=== PATIENT | female | born 1970 | race African-American/Black ===

== ENCOUNTER 2019-02-23 10:33 | Emergency (ER) | payer MEDICAID ==
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
[2019-02-23] MEDS ORDERED: Sodium Chloride 0.9% 1,000 ML IV ONE (11:21)
== END 2019-02-23 11:44 | disposition home or self-care (01) ==
LOC: JD.ED 10:33
DX: F10.20 Alcohol dependence, uncomplicated (principal); F41.9 Anxiety disorder, unspecified; F32.9 Major depressive disorder, single episode, unspecified; F17.210 Nicotine dependence, cigarettes, uncomplicated; Z88.1 Allergy status to other antibiotic agents
CPT/HCPCS: 99284

== ENCOUNTER 2022-01-02 17:23 | Inpatient (IN) | payer MEDICAID ==
[2022-01-02] MEDS ORDERED: Sodium Chloride 0.9% 10 ML Syringe FLUSH PRN (19:28)
[2022-01-02] MEDS ORDERED: Lidocaine 2% Jelly 10 ML Urojet MUCMEM ONE (19:31)
[2022-01-02] MEDS ORDERED: Sodium Chloride 0.9% 10 ML Syringe FLUSH ONE (19:34)
[2022-01-02] MEDS ORDERED: Iopamidol 612 MG/ML 100 ML Bottle IVPUSH ONE (19:34)
[2022-01-02] MEDS ORDERED: Furosemide 40 MG/4 ML VIAL IVPUSH ONE (19:43)
[2022-01-02] MEDS ORDERED: Sodium Chloride 0.9% 100 ML IV SCH (19:45)
[2022-01-02] MEDS ORDERED: Potassium Chloride 20 MEQ Tab.ER PO ONE (20:46)
[2022-01-02] MEDS ORDERED: Ondansetron 4 MG/2 ML SDV IVPUSH ONE (21:49)
[2022-01-02] MEDS ORDERED: HYDROmorphone 0.5 MG/0.5 ML Syringe IVPUSH ONE (21:49)
[2022-01-02] MEDS ORDERED: Metoclopramide 10 MG/2 ML SDV IVPUSH PRN (23:58)
[2022-01-03] MEDS: HYDROmorphone 0.5 MG/0.5 ML Syringe IVPUSH PRN ×2 (03:19→23:53)
[2022-01-03] MEDS ORDERED: Ondansetron 4 MG/2 ML SDV IVPUSH PRN (06:00)
[2022-01-03] MEDS ORDERED: Magnesium Hydroxide 400 MG/5 ML Susp 30 ML Cup PO ONE ×2 (06:43→09:00)
[2022-01-03] MEDS ORDERED: Furosemide 40 MG/4 ML VIAL IVPUSH SCH (09:00)
[2022-01-03] MEDS ORDERED: Acetaminophen 325 MG Tab PO PRN (09:15)
[2022-01-03] MEDS ORDERED: Enoxaparin 30 MG/0.3 ML Syringe SUBCUT SCH (11:00)
[2022-01-03] MEDS ORDERED: Nicotine 14 MG/24 Hr Patch TRDERM ONE (11:15)
[2022-01-03] MEDS: Furosemide 20 MG/2 ML VIAL IVPUSH SCH (17:26)
[2022-01-03] MEDS ORDERED: Furosemide 20 MG/2 ML VIAL IVPUSH SCH (21:00)
[2022-01-03] MEDS ORDERED: Simethicone Drops 40 MG/0.6 ML 30 ML Bottle PO ONE (21:34)
[2022-01-03] MEDS ORDERED: Simethicone 80 MG Tab.Chew PO ONE (21:36)
[2022-01-04] MEDS: Furosemide 20 MG/2 ML VIAL IVPUSH SCH ×2 (06:15→14:51)
[2022-01-04] MEDS ORDERED: Bisacodyl 10 MG Supp RECTAL ONE (08:00)
[2022-01-04] MEDS: Enoxaparin 40 MG/0.4 ML Syringe SUBCUT SCH (09:01)
[2022-01-04] MEDS ORDERED: Furosemide 20 MG/2 ML VIAL IVPUSH ONE (09:45)
[2022-01-04] MEDS ORDERED: Magnesium Sulfate/Water 2 GM in Premix Bag 1 BAG IV ONE (11:00)
[2022-01-05] MEDS: Furosemide 20 MG/2 ML VIAL IVPUSH SCH ×2 (06:51→13:45)
[2022-01-05] MEDS ORDERED: Bisacodyl 10 MG Supp RECTAL ONE (08:00)
[2022-01-05] MEDS: Enoxaparin 40 MG/0.4 ML Syringe SUBCUT SCH ×3 (09:05→16:12)
[2022-01-05] MEDS: Metoprolol Succinate 25 MG Tab.ER PO SCH (09:06)
[2022-01-05] MEDS: Lisinopril 5 MG Tab PO SCH (09:06)
[2022-01-05] MEDS: Topiramate 25 MG Tab PO SCH ×3 (13:46→19:22)
[2022-01-05] MEDS ORDERED: Lisinopril 5 MG Tab PO ONE (15:30)
[2022-01-05] MEDS ORDERED: Metoprolol Succinate 25 MG Tab.ER PO ONE (15:30)
[2022-01-05] MEDS: fluvoxaMINE 50 MG Tab PO SCH (19:21)
[2022-01-05] MEDS: Haloperidol 5 MG Tab PO SCH (19:23)
[2022-01-05] MEDS: HYDROmorphone 0.5 MG/0.5 ML Syringe IVPUSH PRN (23:55)
[2022-01-06] MEDS: fluvoxaMINE 50 MG Tab PO SCH ×3 (01:04→20:52)
[2022-01-06] MEDS: Haloperidol 5 MG Tab PO SCH ×3 (01:05→20:52)
[2022-01-06] MEDS: Topiramate 25 MG Tab PO SCH ×5 (01:05→23:08)
[2022-01-06] MEDS: Furosemide 20 MG/2 ML VIAL IVPUSH SCH ×2 (06:41→14:28)
[2022-01-06] MEDS: Metoprolol Succinate 25 MG Tab.ER PO SCH (11:06)
[2022-01-06] MEDS: Lisinopril 5 MG Tab PO SCH (11:06)
[2022-01-06] MEDS: Enoxaparin 40 MG/0.4 ML Syringe SUBCUT SCH (14:29)
[2022-01-07] MEDS: Furosemide 20 MG/2 ML VIAL IVPUSH SCH (05:09)
[2022-01-07] MEDS: Topiramate 25 MG Tab PO SCH (08:37)
[2022-01-07] MEDS: Lisinopril 5 MG Tab PO SCH (08:38)
[2022-01-07] MEDS: Metoprolol Succinate 25 MG Tab.ER PO SCH (08:39)
== END 2022-01-07 13:06 | disposition home or self-care (01) | DRG 293 ==
LOC: JD.ED 17:23 → SUPCPDRO 17:23 → JD.MS 21:41
PROVIDERS: ADMIT Internal Medicine; ATTEND Internal Medicine
PROC: 30233N1 Transfusion of Nonautologous Red Blood Cells into Peripheral Vein, Percutaneous Approach (ICD-10-PCS; principal; 2022-01-02)
DX: I50.23 Acute on chronic systolic (congestive) heart failure (principal); F10.20 Alcohol dependence, uncomplicated; R33.9 Retention of urine, unspecified; D50.8 Other iron deficiency anemias; I34.0 Nonrheumatic mitral (valve) insufficiency; F42.9 Obsessive-compulsive disorder, unspecified; F21 Schizotypal disorder; F25.1 Schizoaffective disorder, depressive type; F32.A Depression, unspecified; F17.200 Nicotine dependence, unspecified, uncomplicated; H54.7 Unspecified visual loss; J45.909 Unspecified asthma, uncomplicated; F41.9 Anxiety disorder, unspecified; Z88.0 Allergy status to penicillin
CPT/HCPCS: 36415; 71045; 71045-26; 74019; 74019-26; 74177; 74177-26; 80053; 81001; 82977; 83690; 83735; 83880; 85025; 86140; 93005; 93010; 93306; 94667; 94760; 94761; 96374; 96375; 99222; 99233; 99239; 99285; 99285-25; A9270-GY; J1170; J1650; J1940; J2405; J3475; J3490; Q9967

== ENCOUNTER 2022-02-20 17:01 | Emergency (ER) | payer MEDICAID ==
[2022-02-20] MEDS ORDERED: Furosemide 40 MG Tab PO ONE (18:51)
== END 2022-02-20 19:54 | disposition home or self-care (01) ==
LOC: JD.ED 17:01
DX: I50.9 Heart failure, unspecified (principal); Z88.0 Allergy status to penicillin; Z79.899 Other long term (current) drug therapy; Z72.0 Tobacco use
CPT/HCPCS: 36415; 71045; 80053; 81001; 83735; 83880; 84484; 85025; 86140; 87086; 93005; 99285; A9270; 93010; 99284

== ENCOUNTER 2022-04-23 19:50 | Emergency (ER) | payer MEDICAID ==
[2022-04-23] MEDS ORDERED: Amiodarone In Dextrose,Iso-Osm 0 ML IV ONE (19:56)
[2022-04-23] MEDS ORDERED: Propofol 200 MG/20 ML SDV IVPUSH ONE (20:03)
[2022-04-23] MEDS ORDERED: Rocuronium 50 MG/5 ML Vial IVPUSH ONE (20:03)
[2022-04-23] MEDS: propofoL 100 ML IV SCH (20:10)
[2022-04-23] MEDS: Sodium Chloride 0.9% 1,000 ML ONE (20:10)
[2022-04-23] MEDS: propofoL 100 ML ONE (20:10)
[2022-04-23] MEDS ORDERED: Sodium Chloride 0.9% 1,000 ML IV ONE (20:15)
[2022-04-23] MEDS ORDERED: Norepinephrine 4 MG/4 ML SDV ONE (20:22)
[2022-04-23] MEDS ORDERED: Sodium Chloride 0.9% 250 ML ONE (20:23)
[2022-04-23] MEDS ORDERED: Norepinephrine 4 MG in Dextrose 5% in Water 246 ML IV SCH ×4 (20:28→21:00)
[2022-04-23 20:44] LABS: ESTIMATED GFR 77 mL/min (>60)
[2022-04-23] MEDS ORDERED: Iopamidol 755 Mg/ML 100 ML Bottle IVPUSH ONE (20:49)
[2022-04-23] MEDS ORDERED: Sodium Chloride 0.9% 100 ML IV SCH (21:00)
[2022-04-23] MEDS ORDERED: Piperacillin/Tazobactam 4.5 GM in Sodium Chloride 0.9% 100 ML IV ONE (21:27)
[2022-04-24] MEDS: propofoL 100 ML ONE (00:27)
[2022-04-24] MEDS ORDERED: Lanolin/Mineral Oil/Petrolatum Ophth Oint 3.5 GM Tube ONE (00:43)
[2022-04-24] MEDS: propofoL 100 ML IV SCH (01:20)
[2022-04-24] MEDS ORDERED: Lanolin/Mineral Oil/Petrolatum Ophth Oint 3.5 GM Tube EYEBOTH PRN (01:20)
[2022-04-24] MEDS: Sodium Chloride 0.9% 1,000 ML ONE (02:54)
== END 2022-04-24 01:30 ==
LOC: JD.ED 19:50
DX: I46.9 Cardiac arrest, cause unspecified (principal); I50.89 Other heart failure; E87.2 Acidosis; R77.8 Other specified abnormalities of plasma proteins; Z88.0 Allergy status to penicillin; Z79.899 Other long term (current) drug therapy; Z20.822 Contact with and (suspected) exposure to COVID-19
CPT/HCPCS: 31500; 36415; 36600; 51702; 71045; 71275; 80053; 80306; 80307; 81001; 82803; 83605; 83735; 83880; 84484; 85007; 85027; 85379; 85610; 85730; 86140; 87040; 87635; 93005; 96365; 96366; 96368; 99285; A9270; J0282; J2543; J2704; J7030; J7060; Q9967; 93010; U0002

== ENCOUNTER 2022-04-28 20:02 | Emergency (ER) | payer MEDICAID | END 2022-04-28 23:41 | disposition home or self-care (01) | LOC: JD.ED 20:02 | DX: S22.49XA Multiple fractures of ribs, unspecified side, initial encounter for closed fracture (principal); S27.329A Contusion of lung, unspecified, initial encounter; R09.02 Hypoxemia; I50.40 Unspecified combined systolic (congestive) and diastolic (congestive) heart failure; F17.210 Nicotine dependence, cigarettes, uncomplicated; Z28.310 Unvaccinated for COVID-19; Z79.899 Other long term (current) drug therapy; Z86.16 Personal history of COVID-19 | CPT/HCPCS: 31500; 36680; 92950; 99284; 99284-25 ==

== ENCOUNTER 2022-05-01 12:26 | Emergency (ER) | payer MEDICAID | END 2022-05-01 15:58 | disposition home or self-care (01) | LOC: JD.ED 12:26 | DX: L03.116 Cellulitis of left lower limb (principal); I50.40 Unspecified combined systolic (congestive) and diastolic (congestive) heart failure; Z86.16 Personal history of COVID-19 | CPT/HCPCS: 36415; 80053; 83880; 84484; 85025; 93005; 99283 ==

== ENCOUNTER 2023-06-11 17:53 | Emergency (ER) | payer MEDICAID ==
[2023-06-11] MEDS ORDERED: Sodium Chloride 0.9% 10 ML Syringe FLUSH PRN (18:41)
[2023-06-11] MEDS ORDERED: Sodium Chloride 0.9% 1,000 ML IV SCH (18:45)
[2023-06-11 19:59] LABS: BASOPHILS ABSOLUTE AUTO 0.02 K/mm3 (0.01-0.08); BASOPHILS PERCENT AUTO 0.2 % (0.1-1.2); EOSINOPHILS PERCENT AUTO 0 (0.7-5.8); IMMATURE GRAN ABSOLUTE AUTO 0.02 K/mm3 (0.00-0.10); IMMATURE GRAN PERCENT AUTO 0.2 % (<=1.0); LYMPHOCYTES PERCENT AUTO 4.8 % (19.3-51.7); MEAN PLATELET VOLUME 10.2 fl (9.4-12.3); MONOCYTES ABSOLUTE AUTO 1.12 K/mm3 (0.24-0.36); MONOCYTES PERCENT AUTO 10.6 % (4.7-12.5); NEUTROPHILS ABSOLUTE AUTO 8.86 K/mm3 (1.56-6.13); NEUTROPHILS PERCENT AUTO 84.2 % (34.0-71.1); PLATELET COUNT,PLT 200 K/mm3 (182-369); WHITE BLOOD CELL COUNT,WBC 10.52 K/mm3 (3.98-10.04)
[2023-06-11 20:26] LABS: HEMATOCRIT 37.8 % (34.1-44.9); HEMOGLOBIN 13.2 gm/dl (11.2-15.7); MEAN CORPUSCULAR HEMOGLOBIN 34.9 pg (25.6-32.2); MEAN CORPUSCULAR HGB CONC 34.9 g/dl (32.2-35.5)
[2023-06-11 20:28] LABS: A/G RATIO 1.1 (1-2); ALANINE AMINOTRANSFERASE,ALT 85 U/L (14-59); ALBUMIN 3.9 g/dl (3.4-5.0); ALKALINE PHOSPHATASE 157 U/L (46-116); ANION GAP 16.2 (5-15); ASPARTATE AMNIOTRANSFERASE,AST 125 U/L (15-37); BILIRUBIN TOTAL 1.4 mg/dL (0.2-1.0); BLOOD UREA NITROGEN,BUN 5 mg/dL (7-18); BUN/CREATININE RATIO 8.3 (14-18); CALCIUM 9.9 mg/dL (8.5-10.1); CARBON DIOXIDE,CO2 24 mEq/L (21-32); CHLORIDE,CL 100 mEq/L (98-107); CREATININE 0.6 mg/dL (0.55-1.02); ESTIMATED GFR 107 mL/min (>60); GLUCOSE RANDOM 118 mg/dL (70-99); MAGNESIUM 1.3 mg/dL (1.8-2.4); POTASSIUM,K 3.2 mEq/L (3.5-5.1); PROTEIN TOTAL,TP 7.6 g/dl (6.4-8.2); RED BLOOD CELL COUNT 3.78 M/mm3 (3.98-5.22); SODIUM,NA 137 mEq/L (136-145); TSH 0.774 uIU/mL (0.358-3.74)
[2023-06-11 20:33] LABS: APPEARANCE,URINE CLEAR (Clear); BILIRUBIN,URINE NEGATIVE (Negative); COLOR,URINE YELLOW (Yellow); GLUCOSE,URINE NEGATIVE (Negative); KETONES,URINE 2+ (Negative); LEUKOCYTE ESTERASE,URINE NEGATIVE (Negative); NITRITE,URINE NEGATIVE (Negative); OCCULT BLOOD,URINE NEGATIVE (Negative); PROTEIN,URINE 2+ (Negative)
[2023-06-11 20:34] LABS: TROPONIN I HIGH SENSITIVITY 292 pg/mL (<=51)
[2023-06-11 20:40] LABS: RBC,URINE 0-5 /hpf (0-5); WBC,URINE 0-5 /hpf (0-5)
[2023-06-11 20:41] LABS: BACTERIA,URINE FEW /hpf (FEW); HYALINE CASTS,URINE 0-5 /lpf (0-5); MUCUS,URINE MODERATE /hpf (FEW)
[2023-06-11 20:43] LABS: BARBITURATE SCREEN,URINE NEGATIVE (CUTOFF=200); BENZODIAZEPINES SCREEN,URINE NEGATIVE (CUTOFF=150); BUPRENORPHINE SCREEN,URINE NEGATIVE (CUTOFF=10); METHADONE SCREEN, URINE NEGATIVE (CUTOFF=200); METHAMPHETAMINES SCREEN, URINE NEGATIVE (CUTOFF=500); OXYCODONE SCREEN,URINE NEGATIVE (CUT0FF=100); PROPOXYPHENE SCREEN,URINE NEGATIVE (CUTOFF=300); THC SCREEN,URINE 20 NG/ML NEGATIVE (CUTOFF=50)
[2023-06-11 20:46] LABS: AMPHETAMINES SCREEN, URINE NEGATIVE (CUTOFF=500)
[2023-06-11] MEDS ORDERED: Potassium Chloride 20 MEQ Tab.ER PO ONE (20:47)
== END 2023-06-11 20:58 | disposition left against medical advice (07) ==
LOC: JD.ED 17:53
DX: R07.89 Other chest pain (principal)
CPT/HCPCS: 36415; 71045; 80053; 80306; 80307; 81001; 83735; 84443; 84484; 85025; 93005; 96360; 99285; J3490; J7030; 93010; 99283

== ENCOUNTER 2023-06-11 21:47 | Emergency (ER) | payer MEDICAID ==
[2023-06-11 22:27] LABS: BASOPHILS ABSOLUTE AUTO 0.01 K/mm3 (0.01-0.08); BASOPHILS PERCENT AUTO 0.1 % (0.1-1.2); EOSINOPHILS PERCENT AUTO 0 (0.7-5.8); IMMATURE GRAN ABSOLUTE AUTO 0.03 K/mm3 (0.00-0.10); IMMATURE GRAN PERCENT AUTO 0.3 % (<=1.0); LYMPHOCYTES ABSOLUTE AUTO 0.46 K/mm3 (1.18-3.74); LYMPHOCYTES PERCENT AUTO 4.8 % (19.3-51.7); MEAN PLATELET VOLUME 9.8 fl (9.4-12.3); MONOCYTES PERCENT AUTO 9.4 % (4.7-12.5); NEUTROPHILS ABSOLUTE AUTO 8.16 K/mm3 (1.56-6.13); NEUTROPHILS PERCENT AUTO 85.4 % (34.0-71.1); PLATELET COUNT,PLT 179 K/mm3 (182-369); WHITE BLOOD CELL COUNT,WBC 9.56 K/mm3 (3.98-10.04)
[2023-06-11 22:47] LABS: HEMATOCRIT 36.6 % (34.1-44.9); HEMOGLOBIN 12.6 gm/dl (11.2-15.7)
[2023-06-11 22:48] LABS: MEAN CORPUSCULAR HEMOGLOBIN 34.4 pg (25.6-32.2); MEAN CORPUSCULAR HGB CONC 34.4 g/dl (32.2-35.5)
[2023-06-11 22:49] LABS: RED BLOOD CELL COUNT 3.66 M/mm3 (3.98-5.22)
[2023-06-11 23:36] LABS: ALBUMIN 3.6 g/dl (3.4-5.0); ANION GAP 15.1 (5-15); BILIRUBIN TOTAL 1.4 mg/dL (0.2-1.0); BUN/CREATININE RATIO 7.1 (14-18); CALCIUM 9.4 mg/dL (8.5-10.1); CREATININE 0.7 mg/dL (0.55-1.02); EST CRCL DRUG DOSING (CG) 99.74 mL/min; POTASSIUM,K 3.1 mEq/L (3.5-5.1); PROTEIN TOTAL,TP 7.2 g/dl (6.4-8.2)
[2023-06-11] MEDS ORDERED: Aspirin 325 MG Tab.EC PO ONE (23:42)
[2023-06-11] MEDS ORDERED: Potassium Chloride 20 MEQ Tab.ER PO ONE (23:44)
[2023-06-12] MEDS ORDERED: Heparin Sodium 5,000 Units/ML Vial IVPUSH ONE ×2 (00:17→00:30)
[2023-06-12] MEDS ORDERED: Heparin Sodium/D5W 25,000 UNITS/500 ML BAG IV SCH (00:30)
== END 2023-06-12 02:22 ==
LOC: JD.ED 21:47
DX: I21.4 Non-ST elevation (NSTEMI) myocardial infarction (principal); Z86.16 Personal history of COVID-19; I50.9 Heart failure, unspecified; Z79.899 Other long term (current) drug therapy
CPT/HCPCS: 36415; 80053; 84484; 85025; 93005; 96365; 96366; 99285; A9270; J1644; 93010

== ENCOUNTER 2023-08-02 14:24 | Emergency (ER) | payer MEDICAID ==
[2023-08-02] MEDS ORDERED: Sodium Chloride 0.9% 10 ML Syringe FLUSH PRN (15:14)
[2023-08-02] MEDS ORDERED: Ondansetron 4 MG/2 ML SDV IVPUSH ONE (15:14)
[2023-08-02] MEDS ORDERED: Sodium Chloride 0.9% 1,000 ML IV SCH (15:15)
[2023-08-02] MEDS ORDERED: HYDROmorphone 0.5 MG/0.5 ML Syringe IVPUSH ONE (15:17)
[2023-08-02 15:23] LABS: BASOPHILS ABSOLUTE AUTO 0.1 K/mm3 (0.0-0.2); BASOPHILS PERCENT AUTO 0.9 % (0.0-1.0); EOSINOPHILS PERCENT AUTO 0.5 % (0.0-6.0); HEMATOCRIT 39.2 % (37.0-47.0); HEMOGLOBIN 14.9 gm/dl (12.0-16.0); IMMATURE GRAN ABSOLUTE AUTO 0.05 K/mm3 (0.00-0.05); IMMATURE GRAN PERCENT AUTO 0.9 % (0.0-0.4); LYMPHOCYTES ABSOLUTE AUTO 0.6 K/mm3 (1.0-4.8); LYMPHOCYTES PERCENT AUTO 10.7 % (24.0-44.0); MEAN CORPUSCULAR HEMOGLOBIN 35.2 pg (28.0-32.0); MEAN CORPUSCULAR VOLUME 92.7 fl (83.0-99.0); MEAN PLATELET VOLUME 10.5 fl (9.4-12.3); MONOCYTES ABSOLUTE AUTO 0.5 K/mm3 (0.0-0.8); NEUTROPHILS ABSOLUTE AUTO 4.5 K/mm3 (1.8-7.7); PLATELET COUNT,PLT 189 K/mm3 (150-400); RED BLOOD CELL COUNT 4.23 M/mm3 (4.10-5.30); WHITE BLOOD CELL COUNT,WBC 5.77 K/mm3 (3.9-11.3)
[2023-08-02] MEDS ORDERED: Sodium Chloride 0.9% 10 ML Syringe FLUSH ONE (15:33)
[2023-08-02] MEDS ORDERED: Iopamidol 612 MG/ML 100 ML Bottle IVPUSH ONE (15:33)
[2023-08-02 15:35] LABS: A/G RATIO 1.1 (1-2); ALANINE AMINOTRANSFERASE,ALT 59 U/L (14-59); ALBUMIN 4.1 g/dl (3.4-5.0); ALKALINE PHOSPHATASE 166 U/L (46-116); ANION GAP 17.4 (5-15); ASPARTATE AMNIOTRANSFERASE,AST 174 U/L (15-37); BILIRUBIN TOTAL 2.2 mg/dL (0.2-1.0); BLOOD UREA NITROGEN,BUN 7 mg/dL (7-18); BUN/CREATININE RATIO 7.8 (14-18); C-REACTIVE PROTEIN <0.2 mg/dL (<1.0); CALCIUM 9.6 mg/dL (8.5-10.1); CARBON DIOXIDE,CO2 25 mEq/L (21-32); CHLORIDE,CL 101 mEq/L (98-107); CREATININE 0.9 mg/dL (0.55-1.02); EST CRCL DRUG DOSING (CG) 74.68 mL/min; ESTIMATED GFR 76 mL/min (>60); GLUCOSE RANDOM 128 mg/dL (70-99); MAGNESIUM 1.3 mg/dL (1.8-2.4); POTASSIUM,K 3.4 mEq/L (3.5-5.1); PROTEIN TOTAL,TP 7.9 g/dl (6.4-8.2); SODIUM,NA 140 mEq/L (136-145); TROPONIN I HIGH SENSITIVITY 32 pg/mL (<=51)
[2023-08-02 15:53] LABS: LIPASE 303 U/L (16-77)
[2023-08-02] MEDS ORDERED: Magnesium Sulfate/Water 2 GM in Premix Bag 1 BAG IV ONE (16:21)
[2023-08-02 17:15] LABS: BARBITURATE SCREEN,URINE NEGATIVE (CUTOFF=200); BENZODIAZEPINES SCREEN,URINE NEGATIVE (CUTOFF=150); BUPRENORPHINE SCREEN,URINE NEGATIVE (CUTOFF=10); METHADONE SCREEN, URINE NEGATIVE (CUTOFF=200); METHAMPHETAMINES SCREEN, URINE NEGATIVE (CUTOFF=500); OXYCODONE SCREEN,URINE NEGATIVE (CUT0FF=100); PROPOXYPHENE SCREEN,URINE NEGATIVE (CUTOFF=300); THC SCREEN,URINE 20 NG/ML NEGATIVE (CUTOFF=50)
[2023-08-02 17:18] LABS: AMPHETAMINES SCREEN, URINE NEGATIVE (CUTOFF=500)
[2023-08-02 17:20] LABS: APPEARANCE,URINE CLEAR (Clear); BILIRUBIN,URINE NEGATIVE (Negative); COLOR,URINE YELLOW (Yellow); GLUCOSE,URINE NEGATIVE (Negative); KETONES,URINE NEGATIVE (Negative); LEUKOCYTE ESTERASE,URINE NEGATIVE (Negative); NITRITE,URINE NEGATIVE (Negative); OCCULT BLOOD,URINE TRACE-INTACT (Negative); PROTEIN,URINE TRACE (Negative)
[2023-08-02 17:29] LABS: BACTERIA,URINE MODERATE /hpf (FEW); MUCUS,URINE FEW /hpf (FEW); TRICHOMONAS,URINE FEW (NOT SEEN)
== END 2023-08-02 17:30 | disposition home or self-care (01) ==
LOC: JD.ED 14:24
DX: K85.20 Alcohol induced acute pancreatitis without necrosis or infection (principal); F10.930 Alcohol use, unspecified with withdrawal, uncomplicated; E83.42 Hypomagnesemia; I50.9 Heart failure, unspecified; Z86.16 Personal history of COVID-19; Z79.899 Other long term (current) drug therapy
CPT/HCPCS: 36415; 71045; 74177; 80053; 80306; 80307; 81001; 83690; 83735; 84484; 85025; 86140; 93005; 96361; 96365; 96375; 99284; J1170; J2405; J3475; J3490; J7030; Q9967; 93010

== ENCOUNTER 2023-08-03 22:16 | Emergency (ER) | payer MEDICAID | END 2023-08-04 02:11 | disposition home or self-care (01) | LOC: JD.ED 22:16 | DX: F10.930 Alcohol use, unspecified with withdrawal, uncomplicated (principal); F17.210 Nicotine dependence, cigarettes, uncomplicated; Z86.16 Personal history of COVID-19 | CPT/HCPCS: 99283; 99284 ==

== ENCOUNTER 2023-08-25 07:17 | Emergency (ER) | payer MEDICAID ==
[2023-08-25] MEDS ORDERED: Sodium Chloride 0.9% 10 ML Syringe FLUSH PRN (07:51)
[2023-08-25 08:42] LABS: MEAN CORPUSCULAR HGB CONC 37.7 g/dl (32.0-36.0); MEAN PLATELET VOLUME 10.5 fl (9.4-12.3); PLATELET COUNT,PLT 189 K/mm3 (150-400); WHITE BLOOD CELL COUNT,WBC 5.52 K/mm3 (3.9-11.3)
[2023-08-25 08:55] LABS: HEMOGLOBIN 14.7 gm/dl (12.0-16.0); RED BLOOD CELL COUNT 4.23 M/mm3 (4.10-5.30)
[2023-08-25 08:57] LABS: MEAN CORPUSCULAR HEMOGLOBIN 34.8 pg (28.0-32.0); MEAN CORPUSCULAR VOLUME 92.2 fl (83.0-99.0)
[2023-08-25 09:06] LABS: ANION GAP 14.6 (5-15); BILIRUBIN TOTAL 0.9 mg/dL (0.2-1.0); BUN/CREATININE RATIO 8.8 (14-18); CREATININE 0.8 mg/dL (0.55-1.02); EST CRCL DRUG DOSING (CG) 86.93 mL/min; POTASSIUM,K 3.6 mEq/L (3.5-5.1); PROTEIN TOTAL,TP 7.9 g/dl (6.4-8.2)
[2023-08-25 09:36] LABS: BARBITURATE SCREEN,URINE NEGATIVE (CUTOFF=200); BENZODIAZEPINES SCREEN,URINE PRESUMPTIVE POSITIVE (CUTOFF=150); BUPRENORPHINE SCREEN,URINE NEGATIVE (CUTOFF=10); METHADONE SCREEN, URINE NEGATIVE (CUTOFF=200); METHAMPHETAMINES SCREEN, URINE NEGATIVE (CUTOFF=500); OXYCODONE SCREEN,URINE NEGATIVE (CUT0FF=100); PROPOXYPHENE SCREEN,URINE NEGATIVE (CUTOFF=300); THC SCREEN,URINE 20 NG/ML NEGATIVE (CUTOFF=50)
[2023-08-25 09:40] LABS: AMPHETAMINES SCREEN, URINE NEGATIVE (CUTOFF=500)
[2023-08-25] MEDS ORDERED: chlordiazePOXIDE 25 MG Cap PO ONE (10:29)
== END 2023-08-25 10:56 | disposition home or self-care (01) ==
LOC: JD.ED 07:17
DX: F10.239 Alcohol dependence with withdrawal, unspecified (principal); R56.9 Unspecified convulsions; Z86.16 Personal history of COVID-19; Z79.899 Other long term (current) drug therapy; Y90.0 Blood alcohol level of less than 20 mg/100 ml
CPT/HCPCS: 36415; 70450; 80053; 80306; 80307; 85027; 99285; A9270; J3490; 99283

== ENCOUNTER 2024-01-21 11:38 | Emergency (ER) | payer MEDICAID ==
[2024-01-21 12:17] LABS: BASOPHILS PERCENT AUTO 0.7 % (0.0-1.0); EOSINOPHILS ABSOLUTE AUTO 0.3 K/mm3 (0.0-0.4); EOSINOPHILS PERCENT AUTO 5.4 % (0.0-6.0); IMMATURE GRAN ABSOLUTE AUTO 0.02 K/mm3 (0.00-0.05); IMMATURE GRAN PERCENT AUTO 0.4 % (0.0-0.4); LYMPHOCYTES ABSOLUTE AUTO 0.9 K/mm3 (1.0-4.8); LYMPHOCYTES PERCENT AUTO 15.8 % (24.0-44.0); MEAN PLATELET VOLUME 9.8 fl (9.4-12.3); MONOCYTES ABSOLUTE AUTO 0.5 K/mm3 (0.0-0.8); MONOCYTES PERCENT AUTO 8.1 % (0.0-8.0); NEUTROPHILS PERCENT AUTO 69.6 % (41.0-71.0); PLATELET COUNT,PLT 186 K/mm3 (150-400); WHITE BLOOD CELL COUNT,WBC 5.69 K/mm3 (3.9-11.3)
[2024-01-21 12:31] LABS: APPEARANCE,URINE CLOUDY (Clear); BILIRUBIN,URINE NEGATIVE (Negative); COLOR,URINE YELLOW (Yellow); GLUCOSE,URINE NEGATIVE (Negative); KETONES,URINE NEGATIVE (Negative); LEUKOCYTE ESTERASE,URINE TRACE (Negative); NITRITE,URINE NEGATIVE (Negative); OCCULT BLOOD,URINE TRACE-INTACT (Negative); PROTEIN,URINE 2+ (Negative); UROBILINOGEN,URINE 0.2 (0.2-1.0)
[2024-01-21 12:33] LABS: INR 1.22; PROTHROMBIN TIME 12.9 SECONDS (9.7-12.0)
[2024-01-21 12:36] LABS: HEMOGLOBIN 13.5 gm/dl (12.0-16.0)
[2024-01-21 12:38] LABS: MEAN CORPUSCULAR HEMOGLOBIN 34.6 pg (28.0-32.0); MEAN CORPUSCULAR HGB CONC 37.5 g/dl (32.0-36.0); MEAN CORPUSCULAR VOLUME 92.3 fl (83.0-99.0)
[2024-01-21 12:38] LABS: BARBITURATE SCREEN,URINE NEGATIVE (CUTOFF=200); BENZODIAZEPINES SCREEN,URINE PRESUMPTIVE POSITIVE (CUTOFF=150); BUPRENORPHINE SCREEN,URINE NEGATIVE (CUTOFF=10); METHADONE SCREEN, URINE NEGATIVE (CUTOFF=200); METHAMPHETAMINES SCREEN, URINE NEGATIVE (CUTOFF=500); OXYCODONE SCREEN,URINE NEGATIVE (CUT0FF=100); THC SCREEN,URINE 20 NG/ML NEGATIVE (CUTOFF=50)
[2024-01-21 12:42] LABS: A/G RATIO 1.1 (1-2); ALBUMIN 4.2 g/dl (3.4-5.0); ANION GAP 16.2 (5-15); BILIRUBIN TOTAL 0.9 mg/dL (0.2-1.0); BUN/CREATININE RATIO 12.2 (14-18); C-REACTIVE PROTEIN 0.23 mg/dL (<0.30); CALCIUM 9.5 mg/dL (8.5-10.1); CREATININE 0.9 mg/dL (0.55-1.02); EST CRCL DRUG DOSING (CG) 72.08 mL/min; MAGNESIUM 1.3 mg/dL (1.8-2.4); POTASSIUM,K 3.2 mEq/L (3.5-5.1)
[2024-01-21 12:43] LABS: AMPHETAMINES SCREEN, URINE NEGATIVE (CUTOFF=500)
[2024-01-21 12:46] LABS: AMORPHOUS SEDIMENT,URINE FEW /hpf (NOT SEEN); BACTERIA,URINE MODERATE /hpf (FEW); MUCUS,URINE FEW /hpf (FEW)
[2024-01-21 12:49] LABS: LACTIC ACID 3.4 mmol/L (0.4-2.0)
[2024-01-21 13:03] LABS: TSH 2.306 uIU/mL (0.358-3.74)
[2024-01-21] MEDS: Sodium Chloride 0.9% 1,000 ML IV SCH ×2 (13:23→14:46)
[2024-01-21] MEDS ORDERED: levETIRAcetam 500 MG in Sodium Chloride 0.9% 100 ML IV ONE (13:39)
[2024-01-21] MEDS: levETIRAcetam 500 MG in Sodium Chloride 0.9% 100 ML IV ONE (14:20)
[2024-01-21] MEDS: Folic Acid 1 MG Tab PO ONE (14:21)
[2024-01-21] MEDS: Potassium Chloride 20 MEQ Tab.ER PO ONE (14:21)
[2024-01-21] MEDS: Thiamine 100 MG Tab PO ONE (14:25)
[2024-01-21] MEDS: Magnesium Sulfate/Water 2 GM in Premix Bag 1 BAG IV ONE (14:44)
== END 2024-01-21 17:20 | disposition home or self-care (01) ==
LOC: JD.ED 11:38
DX: R56.9 Unspecified convulsions (principal); I50.9 Heart failure, unspecified; I25.2 Old myocardial infarction; F17.210 Nicotine dependence, cigarettes, uncomplicated; Z79.899 Other long term (current) drug therapy; Z86.16 Personal history of COVID-19
CPT/HCPCS: 36415; 70450; 70450-26; 71046; 71046-26; 80053; 80306; 80307; 81001; 83605; 83735; 83880; 84443; 84484; 85025; 85610; 86140; 87086; 93005; 93010; 96361; 96365; 96366; 96367; 99283; 99284-25; A9270-GY; J1953; J3475; J3490; J7030

== ENCOUNTER 2024-05-05 11:28 | Emergency (ER) | payer MEDICAID ==
[2024-05-05 12:08] LABS: BASOPHILS ABSOLUTE AUTO 0.1 K/mm3 (0.0-0.2); BASOPHILS PERCENT AUTO 0.4 % (0.0-1.0); EOSINOPHILS ABSOLUTE AUTO 0.1 K/mm3 (0.0-0.4); EOSINOPHILS PERCENT AUTO 0.9 % (0.0-6.0); HEMATOCRIT 30.4 % (37.0-47.0); HEMOGLOBIN 11.6 gm/dl (12.0-16.0); IMMATURE GRAN ABSOLUTE AUTO 0.31 K/mm3 (0.00-0.05); IMMATURE GRAN PERCENT AUTO 2.2 % (0.0-0.4); LYMPHOCYTES ABSOLUTE AUTO 1.1 K/mm3 (1.0-4.8); LYMPHOCYTES PERCENT AUTO 7.5 % (24.0-44.0); MEAN CORPUSCULAR HEMOGLOBIN 33.9 pg (28.0-32.0); MEAN CORPUSCULAR HGB CONC 38.2 g/dl (32.0-36.0); MEAN CORPUSCULAR VOLUME 88.9 fl (83.0-99.0); MEAN PLATELET VOLUME 10.6 fl (9.4-12.3); MONOCYTES ABSOLUTE AUTO 1.8 K/mm3 (0.0-0.8); NEUTROPHILS ABSOLUTE AUTO 10.7 K/mm3 (1.8-7.7); PLATELET COUNT,PLT 332 K/mm3 (150-400); RED BLOOD CELL COUNT 3.42 M/mm3 (4.10-5.30); WHITE BLOOD CELL COUNT,WBC 14.05 K/mm3 (3.9-11.3)
[2024-05-05] MEDS: HYDROmorphone 0.5 MG/0.5 ML Syringe IVPUSH ONE ×2 (12:18→16:29)
[2024-05-05] MEDS: Ondansetron 4 MG/2 ML SDV IVPUSH ONE (12:18)
[2024-05-05] MEDS: Sodium Chloride 0.9% 1,000 ML IV STA (12:19)
[2024-05-05] MEDS: Sodium Chloride 0.9% 10 ML Syringe FLUSH PRN ×2 (12:19→15:16)
[2024-05-05 12:37] LABS: A/G RATIO 0.7 (1-2); ALBUMIN 3.2 g/dl (3.4-5.0); ANION GAP 17.9 (5-15); BILIRUBIN TOTAL 0.7 mg/dL (0.2-1.0); C-REACTIVE PROTEIN 12.3 mg/dL (<0.30); CALCIUM 9.1 mg/dL (8.5-10.1); EST CRCL DRUG DOSING (CG) 64.98 mL/min; POTASSIUM,K 4.9 mEq/L (3.5-5.1); PROTEIN TOTAL,TP 7.8 g/dl (6.4-8.2)
[2024-05-05 12:42] LABS: LACTIC ACID 1.1 mmol/L (0.4-2.0)
[2024-05-05] MEDS: Piperacillin/Tazobactam 4.5 GM in Sodium Chloride 0.9% 100 ML IV ONE (14:05)
[2024-05-05 14:07] LABS: SLIDE REVIEW ABNORMAL SMEAR
[2024-05-05] MEDS: Iopamidol 612 MG/ML 100 ML Bottle IVPUSH ONE (15:16)
[2024-05-05 16:39] LABS: APPEARANCE,URINE CLEAR (Clear); BILIRUBIN,URINE NEGATIVE (Negative); COLOR,URINE YELLOW (Yellow); GLUCOSE,URINE NEGATIVE (Negative); KETONES,URINE NEGATIVE (Negative); LEUKOCYTE ESTERASE,URINE NEGATIVE (Negative); NITRITE,URINE NEGATIVE (Negative); OCCULT BLOOD,URINE NEGATIVE (Negative); PROTEIN,URINE NEGATIVE (Negative); UROBILINOGEN,URINE 0.2 (0.2-1.0)
== END 2024-05-05 16:44 ==
LOC: JD.ED 11:28
DX: K85.20 Alcohol induced acute pancreatitis without necrosis or infection (principal); K86.3 Pseudocyst of pancreas; K86.89 Other specified diseases of pancreas; I50.9 Heart failure, unspecified; Z86.16 Personal history of COVID-19
CPT/HCPCS: 36415; 71260; 71260-26; 74177; 74177-26; 80053; 80307; 81003; 83605; 83690; 83880; 84484; 85025; 86140; 86850; 86900; 86901; 87040; 93005; 93010; 96361; 96365; 96375; 96376; 99285; 99285-25; J1170; J2405; J2543; J3490; J7030; Q9967

== ENCOUNTER 2024-05-18 03:01 | Emergency (ER) | payer MEDICAID ==
[2024-05-18 04:16] LABS: BASOPHILS ABSOLUTE AUTO 0.1 K/mm3 (0.0-0.2); BASOPHILS PERCENT AUTO 0.6 % (0.0-1.0); EOSINOPHILS ABSOLUTE AUTO 0.3 K/mm3 (0.0-0.4); EOSINOPHILS PERCENT AUTO 3.1 % (0.0-6.0); HEMATOCRIT 30.6 % (37.0-47.0); HEMOGLOBIN 10.7 gm/dl (12.0-16.0); IMMATURE GRAN ABSOLUTE AUTO 0.36 K/mm3 (0.00-0.05); IMMATURE GRAN PERCENT AUTO 3.4 % (0.0-0.4); LYMPHOCYTES ABSOLUTE AUTO 1.1 K/mm3 (1.0-4.8); LYMPHOCYTES PERCENT AUTO 10.2 % (24.0-44.0); MEAN CORPUSCULAR HEMOGLOBIN 32.7 pg (28.0-32.0); MEAN CORPUSCULAR VOLUME 93.6 fl (83.0-99.0); MEAN PLATELET VOLUME 9.9 fl (9.4-12.3); MONOCYTES ABSOLUTE AUTO 1.2 K/mm3 (0.0-0.8); MONOCYTES PERCENT AUTO 11.3 % (0.0-8.0); NEUTROPHILS ABSOLUTE AUTO 7.6 K/mm3 (1.8-7.7); NEUTROPHILS PERCENT AUTO 71.4 % (41.0-71.0); PLATELET COUNT,PLT 275 K/mm3 (150-400); RED BLOOD CELL COUNT 3.27 M/mm3 (4.10-5.30); WHITE BLOOD CELL COUNT,WBC 10.67 K/mm3 (3.9-11.3)
[2024-05-18 04:18] LABS: APPEARANCE,URINE CLEAR (Clear); BILIRUBIN,URINE NEGATIVE (Negative); COLOR,URINE DARK YELLOW (Yellow); GLUCOSE,URINE NEGATIVE (Negative); KETONES,URINE NEGATIVE (Negative); LEUKOCYTE ESTERASE,URINE NEGATIVE (Negative); NITRITE,URINE NEGATIVE (Negative); OCCULT BLOOD,URINE NEGATIVE (Negative); PROTEIN,URINE 1+ (Negative); UROBILINOGEN,URINE 0.2 (0.2-1.0)
[2024-05-18] MEDS: Dextrose 5%-Lactated Ringers 1,000 ML IV SCH (04:18)
[2024-05-18] MEDS: HYDROmorphone 0.5 MG/0.5 ML Syringe IVPUSH ONE (04:18)
[2024-05-18] MEDS: Metoclopramide 10 MG/2 ML SDV IVPUSH ONE (04:18)
[2024-05-18 04:23] LABS: INR 1.22; PROTHROMBIN TIME 12.8 SECONDS (9.7-12.0)
[2024-05-18 04:24] LABS: PTT,PARTIAL THROMBOPLSTIN TIME 29.4 SECONDS (21.7-31.4)
[2024-05-18 04:25] LABS: BACTERIA,URINE FEW /hpf (FEW); HYALINE CASTS,URINE 0-5 /lpf (0-5); MUCUS,URINE RARE /hpf (FEW); RBC,URINE 0-5 /hpf (0-5); SQUAMOUS EPITHELIAL CELLS,UR 0-5 /hpf (0-5); WBC,URINE 0-5 /hpf (0-5)
[2024-05-18 04:26] LABS: A/G RATIO 0.8 (1-2); ALBUMIN 3.2 g/dl (3.4-5.0); ANION GAP 12.8 (5-15); BILIRUBIN TOTAL 0.4 mg/dL (0.2-1.0); C-REACTIVE PROTEIN 0.94 mg/dL (<0.30); CALCIUM 9.2 mg/dL (8.5-10.1); CREATININE 0.8 mg/dL (0.55-1.02); EST CRCL DRUG DOSING (CG) 69.42 mL/min; POTASSIUM,K 4.8 mEq/L (3.5-5.1); PROTEIN TOTAL,TP 7.4 g/dl (6.4-8.2)
[2024-05-18] MEDS: Iopamidol 612 MG/ML 100 ML Bottle IVPUSH ONE (06:05)
[2024-05-18] MEDS: Sodium Chloride 0.9% 10 ML Syringe FLUSH ONE (06:05)
[2024-05-18] MEDS: oxyCODONE 5 MG Tab PO ONE (10:33)
== END 2024-05-18 12:30 | disposition home or self-care (01) ==
LOC: JD.ED 03:01
DX: R10.84 Generalized abdominal pain (principal); R74.8 Abnormal levels of other serum enzymes; I25.2 Old myocardial infarction; Z86.16 Personal history of COVID-19; Z79.82 Long term (current) use of aspirin; Z79.899 Other long term (current) drug therapy
CPT/HCPCS: 36415; 74018; 74177; 80053; 80307; 81001; 83690; 83735; 83880; 84484; 85025; 85610; 85730; 86140; 96361; 96374; 96375; 99284; A9270; J1170; J2765; J3490; J7121; Q9967; 71260

== ENCOUNTER 2024-05-19 06:31 | Inpatient (IN) | payer MEDICAID ==
[2024-05-19 07:54] LABS: BASOPHILS PERCENT AUTO 0.5 % (0.0-1.0); EOSINOPHILS ABSOLUTE AUTO 0.3 K/mm3 (0.0-0.4); EOSINOPHILS PERCENT AUTO 4.1 % (0.0-6.0); HEMATOCRIT 28.2 % (37.0-47.0); HEMOGLOBIN 9.8 gm/dl (12.0-16.0); IMMATURE GRAN ABSOLUTE AUTO 0.06 K/mm3 (0.00-0.05); IMMATURE GRAN PERCENT AUTO 0.8 % (0.0-0.4); LYMPHOCYTES ABSOLUTE AUTO 1.4 K/mm3 (1.0-4.8); LYMPHOCYTES PERCENT AUTO 17.9 % (24.0-44.0); MEAN CORPUSCULAR HEMOGLOBIN 32.6 pg (28.0-32.0); MEAN CORPUSCULAR HGB CONC 34.8 g/dl (32.0-36.0); MEAN CORPUSCULAR VOLUME 93.7 fl (83.0-99.0); MEAN PLATELET VOLUME 9.7 fl (9.4-12.3); MONOCYTES ABSOLUTE AUTO 0.9 K/mm3 (0.0-0.8); MONOCYTES PERCENT AUTO 11.3 % (0.0-8.0); NEUTROPHILS ABSOLUTE AUTO 5.2 K/mm3 (1.8-7.7); NEUTROPHILS PERCENT AUTO 65.4 % (41.0-71.0); PLATELET COUNT,PLT 227 K/mm3 (150-400); RED BLOOD CELL COUNT 3.01 M/mm3 (4.10-5.30); WHITE BLOOD CELL COUNT,WBC 7.98 K/mm3 (3.9-11.3)
[2024-05-19] MEDS: Morphine 4 MG/ML Syringe IVPUSH ONE (08:00)
[2024-05-19] MEDS: Sodium Chloride 0.9% 1,000 ML IV ONE (08:03)
[2024-05-19] MEDS: Sodium Chloride 0.9% 10 ML Syringe FLUSH PRN (08:03)
[2024-05-19 08:21] LABS: A/G RATIO 0.8 (1-2); ANION GAP 15.9 (5-15); BILIRUBIN TOTAL 0.6 mg/dL (0.2-1.0); BUN/CREATININE RATIO 8.6 (14-18); CALCIUM 9.3 mg/dL (8.5-10.1); CREATININE 0.7 mg/dL (0.55-1.02); EST CRCL DRUG DOSING (CG) 86.01 mL/min; POTASSIUM,K 4.9 mEq/L (3.5-5.1)
[2024-05-19] MEDS: Sodium Chloride 0.9% 1,000 ML IV SCH (10:05)
[2024-05-19 10:54] LABS: APPEARANCE,URINE CLEAR (Clear); BILIRUBIN,URINE NEGATIVE (Negative); COLOR,URINE YELLOW (Yellow); GLUCOSE,URINE NEGATIVE (Negative); KETONES,URINE NEGATIVE (Negative); LEUKOCYTE ESTERASE,URINE TRACE (Negative); NITRITE,URINE NEGATIVE (Negative); OCCULT BLOOD,URINE NEGATIVE (Negative); PH,URINE 7.5 (5.0-8.0); PROTEIN,URINE 1+ (Negative); UROBILINOGEN,URINE 0.2 (0.2-1.0)
[2024-05-19 11:29] LABS: BACTERIA,URINE MODERATE /hpf (FEW); MUCUS,URINE RARE /hpf (FEW); RBC,URINE 0-5 /hpf (0-5); SQUAMOUS EPITHELIAL CELLS,UR 0-5 /hpf (0-5); WBC,URINE 0-5 /hpf (0-5); YEAST BUDDING,URINE RARE (NOT SEEN)
[2024-05-19] MEDS ORDERED: HYDROmorphone 0.5 MG/0.5 ML Syringe IVPUSH PRN (11:47)
[2024-05-19] MEDS: oxyCODONE 5 MG Tab PO PRN (12:40)
[2024-05-19] MEDS ORDERED: LORazepam 1 MG Tab PO PRN (15:44)
[2024-05-19] MEDS: Carvedilol 6.25 MG Tab PO SCH (20:34)
[2024-05-19] MEDS: levETIRAcetam 500 MG Tab PO SCH (20:36)
[2024-05-19] MEDS: Pantoprazole 40 MG Tab.CR PO SCH (20:36)
[2024-05-19] MEDS: Acetaminophen 325 MG Tab PO PRN (23:58)
[2024-05-20 06:31] LABS: HEMATOCRIT 25.5 % (37.0-47.0); HEMOGLOBIN 8.8 gm/dl (12.0-16.0); MEAN CORPUSCULAR HEMOGLOBIN 32.5 pg (28.0-32.0); MEAN CORPUSCULAR HGB CONC 34.5 g/dl (32.0-36.0); MEAN CORPUSCULAR VOLUME 94.1 fl (83.0-99.0); MEAN PLATELET VOLUME 10.4 fl (9.4-12.3); PLATELET COUNT,PLT 168 K/mm3 (150-400); RED BLOOD CELL COUNT 2.71 M/mm3 (4.10-5.30); WHITE BLOOD CELL COUNT,WBC 4.43 K/mm3 (3.9-11.3)
[2024-05-20 06:57] LABS: A/G RATIO 0.7 (1-2); ALBUMIN 2.6 g/dl (3.4-5.0); ANION GAP 15.1 (5-15); BILIRUBIN TOTAL 0.5 mg/dL (0.2-1.0); BUN/CREATININE RATIO 8.3 (14-18); C-REACTIVE PROTEIN 1.22 mg/dL (<0.30); CALCIUM 8.7 mg/dL (8.5-10.1); CREATININE 0.6 mg/dL (0.55-1.02); EST CRCL DRUG DOSING (CG) 109.07 mL/min; MAGNESIUM 1.8 mg/dL (1.8-2.4); PROTEIN TOTAL,TP 6.3 g/dl (6.4-8.2)
[2024-05-20 07:29] LABS: POTASSIUM,K 6.1 mEq/L (3.5-5.1)
[2024-05-20] MEDS: Aspirin 81 MG Tab.EC PO SCH (08:43)
[2024-05-20] MEDS: Ondansetron 4 MG/2 ML SDV IV PRN (18:24)
[2024-05-21 06:36] LABS: HEMATOCRIT 25.6 % (37.0-47.0); HEMOGLOBIN 9.1 gm/dl (12.0-16.0); MEAN CORPUSCULAR HEMOGLOBIN 33.1 pg (28.0-32.0); MEAN CORPUSCULAR HGB CONC 35.5 g/dl (32.0-36.0); MEAN CORPUSCULAR VOLUME 93.1 fl (83.0-99.0); MEAN PLATELET VOLUME 9.8 fl (9.4-12.3); PLATELET COUNT,PLT 185 K/mm3 (150-400); RED BLOOD CELL COUNT 2.75 M/mm3 (4.10-5.30); WHITE BLOOD CELL COUNT,WBC 3.62 K/mm3 (3.9-11.3)
[2024-05-21 06:53] LABS: A/G RATIO 0.8 (1-2); ALBUMIN 2.7 g/dl (3.4-5.0); ANION GAP 14.5 (5-15); BILIRUBIN TOTAL 0.3 mg/dL (0.2-1.0); BUN/CREATININE RATIO 3.3 (14-18); C-REACTIVE PROTEIN 0.7 mg/dL (<0.30); CALCIUM 9.1 mg/dL (8.5-10.1); CREATININE 0.6 mg/dL (0.55-1.02); EST CRCL DRUG DOSING (CG) 110.68 mL/min; MAGNESIUM 1.7 mg/dL (1.8-2.4); POTASSIUM,K 4.5 mEq/L (3.5-5.1); PROTEIN TOTAL,TP 6.3 g/dl (6.4-8.2)
[2024-05-21] MEDS: Magnesium Sulfate/Water 2 GM in Premix Bag 1 BAG IV ONE (10:07)
== END 2024-05-21 12:53 | disposition home or self-care (01) | DRG 439 ==
LOC: JD.ED 06:31 → JD.MS 09:21
PROVIDERS: ADMIT Internal Medicine; ATTEND Internal Medicine
DX: K85.20 Alcohol induced acute pancreatitis without necrosis or infection (principal); K86.3 Pseudocyst of pancreas; I50.9 Heart failure, unspecified; F41.9 Anxiety disorder, unspecified; F32.A Depression, unspecified; I25.10 Atherosclerotic heart disease of native coronary artery without angina pectoris; F10.20 Alcohol dependence, uncomplicated; D50.8 Other iron deficiency anemias; H54.7 Unspecified visual loss; K29.50 Unspecified chronic gastritis without bleeding; G40.909 Epilepsy, unspecified, not intractable, without status epilepticus; Z79.899 Other long term (current) drug therapy; Z79.82 Long term (current) use of aspirin; I25.2 Old myocardial infarction; Z87.81 Personal history of (healed) traumatic fracture; Z86.16 Personal history of COVID-19; Z95.5 Presence of coronary angioplasty implant and graft
CPT/HCPCS: 36415; 80053; 80307; 81001; 83690; 83735; 85025; 85027; 86140; 87086; 94760; 94761; 96361; 96374; 99285; 99285-25; A9270-GY; J2270; J2405; J3475; J3490; J7030

== ENCOUNTER 2024-06-07 18:16 | Emergency (ER) | payer MEDICAID ==
[2024-06-07 19:16] LABS: BASOPHILS PERCENT AUTO 0.4 % (0.0-1.0); EOSINOPHILS ABSOLUTE AUTO 0.7 K/mm3 (0.0-0.4); EOSINOPHILS PERCENT AUTO 9.1 % (0.0-6.0); HEMATOCRIT 31.4 % (37.0-47.0); HEMOGLOBIN 11.1 gm/dl (12.0-16.0); IMMATURE GRAN ABSOLUTE AUTO 0.03 K/mm3 (0.00-0.05); IMMATURE GRAN PERCENT AUTO 0.4 % (0.0-0.4); LYMPHOCYTES ABSOLUTE AUTO 1.1 K/mm3 (1.0-4.8); LYMPHOCYTES PERCENT AUTO 14.1 % (24.0-44.0); MEAN CORPUSCULAR HEMOGLOBIN 31.9 pg (28.0-32.0); MEAN CORPUSCULAR HGB CONC 35.4 g/dl (32.0-36.0); MEAN CORPUSCULAR VOLUME 90.2 fl (83.0-99.0); MEAN PLATELET VOLUME 11.4 fl (9.4-12.3); MONOCYTES ABSOLUTE AUTO 0.7 K/mm3 (0.0-0.8); MONOCYTES PERCENT AUTO 9.2 % (0.0-8.0); NEUTROPHILS PERCENT AUTO 66.8 % (41.0-71.0); PLATELET COUNT,PLT 219 K/mm3 (150-400); RED BLOOD CELL COUNT 3.48 M/mm3 (4.10-5.30)
[2024-06-07] MEDS: HYDROmorphone 0.5 MG/0.5 ML Syringe IVPUSH ONE (19:23)
[2024-06-07] MEDS: Ondansetron 4 MG/2 ML SDV IVPUSH ONE (19:23)
[2024-06-07] MEDS: Sodium Chloride 0.9% 1,000 ML IV SCH (19:23)
[2024-06-07] MEDS: Sodium Chloride 0.9% 10 ML Syringe FLUSH PRN (19:23)
[2024-06-07 19:27] LABS: A/G RATIO 0.8 (1-2); ALBUMIN 3.2 g/dl (3.4-5.0); ANION GAP 13.7 (5-15); BILIRUBIN TOTAL 0.3 mg/dL (0.2-1.0); BUN/CREATININE RATIO 15.7 (14-18); C-REACTIVE PROTEIN 1.04 mg/dL (<0.30); CALCIUM 9.4 mg/dL (8.5-10.1); CREATININE 0.7 mg/dL (0.55-1.02); EST CRCL DRUG DOSING (CG) 92.53 mL/min; POTASSIUM,K 4.7 mEq/L (3.5-5.1); PROTEIN TOTAL,TP 7.2 g/dl (6.4-8.2)
== END 2024-06-07 21:45 | disposition home or self-care (01) ==
LOC: JD.ED 18:16
DX: R10.84 Generalized abdominal pain (principal); R07.9 Chest pain, unspecified; R74.8 Abnormal levels of other serum enzymes; I50.9 Heart failure, unspecified; I25.2 Old myocardial infarction; F17.210 Nicotine dependence, cigarettes, uncomplicated; Z79.82 Long term (current) use of aspirin; Z79.899 Other long term (current) drug therapy
CPT/HCPCS: 36415; 71045; 80053; 83690; 84484; 85025; 86140; 93005; 96361; 96374; 96375; 99285; J1170; J2405; J3490; J7030; 93010; 99283

== ENCOUNTER 2024-06-19 17:27 | Emergency (ER) | payer MEDICAID ==
[2024-06-19 18:06] LABS: BASOPHILS PERCENT AUTO 0.5 % (0.0-1.0); EOSINOPHILS ABSOLUTE AUTO 0.7 K/mm3 (0.0-0.4); EOSINOPHILS PERCENT AUTO 7.8 % (0.0-6.0); HEMATOCRIT 32.6 % (37.0-47.0); HEMOGLOBIN 11.5 gm/dl (12.0-16.0); IMMATURE GRAN ABSOLUTE AUTO 0.03 K/mm3 (0.00-0.05); IMMATURE GRAN PERCENT AUTO 0.4 % (0.0-0.4); LYMPHOCYTES ABSOLUTE AUTO 1.3 K/mm3 (1.0-4.8); LYMPHOCYTES PERCENT AUTO 15.8 % (24.0-44.0); MEAN CORPUSCULAR HGB CONC 35.3 g/dl (32.0-36.0); MEAN CORPUSCULAR VOLUME 87.9 fl (83.0-99.0); MEAN PLATELET VOLUME 10.5 fl (9.4-12.3); MONOCYTES ABSOLUTE AUTO 0.8 K/mm3 (0.0-0.8); NEUTROPHILS ABSOLUTE AUTO 5.6 K/mm3 (1.8-7.7); NEUTROPHILS PERCENT AUTO 66.5 % (41.0-71.0); PLATELET COUNT,PLT 250 K/mm3 (150-400); RED BLOOD CELL COUNT 3.71 M/mm3 (4.10-5.30); WHITE BLOOD CELL COUNT,WBC 8.41 K/mm3 (3.9-11.3)
[2024-06-19 18:30] LABS: A/G RATIO 0.8 (1-2); ALBUMIN 3.2 g/dl (3.4-5.0); ANION GAP 11.8 (5-15); BILIRUBIN TOTAL 0.4 mg/dL (0.2-1.0); BUN/CREATININE RATIO 15.7 (14-18); C-REACTIVE PROTEIN 1.02 mg/dL (<0.30); CALCIUM 9.4 mg/dL (8.5-10.1); CREATININE 0.7 mg/dL (0.55-1.02); EST CRCL DRUG DOSING (CG) 87.44 mL/min; POTASSIUM,K 4.8 mEq/L (3.5-5.1); PROTEIN TOTAL,TP 7.2 g/dl (6.4-8.2)
[2024-06-19 18:36] LABS: LACTIC ACID 1.1 mmol/L (0.4-2.0)
[2024-06-19] MEDS: Morphine 4 MG/ML Syringe IVPUSH ONE (20:37)
[2024-06-19 20:48] LABS: APPEARANCE,URINE CLEAR (Clear); BILIRUBIN,URINE NEGATIVE (Negative); COLOR,URINE YELLOW (Yellow); GLUCOSE,URINE NEGATIVE (Negative); KETONES,URINE NEGATIVE (Negative); LEUKOCYTE ESTERASE,URINE NEGATIVE (Negative); NITRITE,URINE NEGATIVE (Negative); OCCULT BLOOD,URINE NEGATIVE (Negative); PROTEIN,URINE NEGATIVE (Negative); UROBILINOGEN,URINE 0.2 (0.2-1.0)
== END 2024-06-20 08:37 | disposition home or self-care (01) ==
LOC: JD.ED 17:27
DX: R07.9 Chest pain, unspecified (principal); K86.0 Alcohol-induced chronic pancreatitis; I50.9 Heart failure, unspecified; I25.2 Old myocardial infarction; Z79.82 Long term (current) use of aspirin; Z79.899 Other long term (current) drug therapy
CPT/HCPCS: 36415; 71045; 80053; 81003; 83605; 83690; 83880; 84484; 85025; 86140; 93005; 96374; 99285; J2270; 93010; 99284

== ENCOUNTER 2024-06-29 19:22 | Emergency (ER) | payer MEDICAID ==
[2024-06-29] MEDS ORDERED: Sodium Chloride 0.9% 10 ML Syringe FLUSH PRN (19:59)
[2024-06-29 21:16] LABS: BASOPHILS PERCENT AUTO 0.4 % (0.0-1.0); EOSINOPHILS ABSOLUTE AUTO 0.6 K/mm3 (0.0-0.4); EOSINOPHILS PERCENT AUTO 6.7 % (0.0-6.0); HEMATOCRIT 32.9 % (37.0-47.0); HEMOGLOBIN 11.7 gm/dl (12.0-16.0); IMMATURE GRAN ABSOLUTE AUTO 0.04 K/mm3 (0.00-0.05); IMMATURE GRAN PERCENT AUTO 0.4 % (0.0-0.4); LYMPHOCYTES ABSOLUTE AUTO 1.8 K/mm3 (1.0-4.8); LYMPHOCYTES PERCENT AUTO 19.2 % (24.0-44.0); MEAN CORPUSCULAR HEMOGLOBIN 30.5 pg (28.0-32.0); MEAN CORPUSCULAR HGB CONC 35.6 g/dl (32.0-36.0); MEAN CORPUSCULAR VOLUME 85.7 fl (83.0-99.0); MONOCYTES ABSOLUTE AUTO 1.2 K/mm3 (0.0-0.8); NEUTROPHILS ABSOLUTE AUTO 5.7 K/mm3 (1.8-7.7); NEUTROPHILS PERCENT AUTO 60.3 % (41.0-71.0); PLATELET COUNT,PLT 333 K/mm3 (150-400); RED BLOOD CELL COUNT 3.84 M/mm3 (4.10-5.30); WHITE BLOOD CELL COUNT,WBC 9.53 K/mm3 (3.9-11.3)
[2024-06-29 21:41] LABS: A/G RATIO 0.7 (1-2); ALBUMIN 3.1 g/dl (3.4-5.0); ANION GAP 12.2 (5-15); BILIRUBIN TOTAL 0.3 mg/dL (0.2-1.0); C-REACTIVE PROTEIN 10.92 mg/dL (<0.30); CALCIUM 9.3 mg/dL (8.5-10.1); CREATININE 0.6 mg/dL (0.55-1.02); EST CRCL DRUG DOSING (CG) 106.96 mL/min; POTASSIUM,K 5.2 mEq/L (3.5-5.1); PROTEIN TOTAL,TP 7.4 g/dl (6.4-8.2)
[2024-06-29 23:13] LABS: APPEARANCE,URINE CLEAR (Clear); BILIRUBIN,URINE NEGATIVE (Negative); COLOR,URINE YELLOW (Yellow); GLUCOSE,URINE NEGATIVE (Negative); KETONES,URINE NEGATIVE (Negative); LEUKOCYTE ESTERASE,URINE NEGATIVE (Negative); NITRITE,URINE NEGATIVE (Negative); OCCULT BLOOD,URINE NEGATIVE (Negative); PROTEIN,URINE 1+ (Negative); UROBILINOGEN,URINE 0.2 (0.2-1.0)
[2024-06-29 23:29] LABS: BACTERIA,URINE MODERATE /hpf (FEW); MUCUS,URINE FEW /hpf (FEW); RBC,URINE 0-5 /hpf (0-5); WBC,URINE 0-5 /hpf (0-5)
== END 2024-06-30 | disposition home or self-care (01) ==
LOC: JD.ED 19:22
DX: R07.89 Other chest pain (principal); R79.82 Elevated C-reactive protein (CRP); Z79.82 Long term (current) use of aspirin; Z79.899 Other long term (current) drug therapy
CPT/HCPCS: 36415; 80053; 81001; 83735; 84484; 85025; 86140; 93005; 93010; 99282; 99285

== ENCOUNTER 2024-07-18 17:09 | Emergency (ER) | payer MEDICAID ==
[2024-07-18 19:20] LABS: BASOPHILS PERCENT AUTO 0.5 % (0.0-1.0); EOSINOPHILS ABSOLUTE AUTO 0.6 K/mm3 (0.0-0.4); EOSINOPHILS PERCENT AUTO 10.3 % (0.0-6.0); HEMATOCRIT 31.7 % (37.0-47.0); HEMOGLOBIN 10.9 gm/dl (12.0-16.0); IMMATURE GRAN ABSOLUTE AUTO 0.01 K/mm3 (0.00-0.05); IMMATURE GRAN PERCENT AUTO 0.2 % (0.0-0.4); LYMPHOCYTES ABSOLUTE AUTO 1.3 K/mm3 (1.0-4.8); LYMPHOCYTES PERCENT AUTO 21.3 % (24.0-44.0); MEAN CORPUSCULAR HEMOGLOBIN 29.1 pg (28.0-32.0); MEAN CORPUSCULAR HGB CONC 34.4 g/dl (32.0-36.0); MEAN CORPUSCULAR VOLUME 84.5 fl (83.0-99.0); MEAN PLATELET VOLUME 10.6 fl (9.4-12.3); MONOCYTES ABSOLUTE AUTO 0.5 K/mm3 (0.0-0.8); MONOCYTES PERCENT AUTO 8.9 % (0.0-8.0); NEUTROPHILS ABSOLUTE AUTO 3.5 K/mm3 (1.8-7.7); NEUTROPHILS PERCENT AUTO 58.8 % (41.0-71.0); PLATELET COUNT,PLT 260 K/mm3 (150-400); RED BLOOD CELL COUNT 3.75 M/mm3 (4.10-5.30); WHITE BLOOD CELL COUNT,WBC 5.95 K/mm3 (3.9-11.3)
[2024-07-18 19:43] LABS: A/G RATIO 0.8 (1-2); ANION GAP 12.6 (5-15); BILIRUBIN TOTAL 0.8 mg/dL (0.2-1.0); BUN/CREATININE RATIO 7.1 (14-18); CALCIUM 9.2 mg/dL (8.5-10.1); CREATININE 0.7 mg/dL (0.55-1.02); EST CRCL DRUG DOSING (CG) 85.44 mL/min; POTASSIUM,K 4.6 mEq/L (3.5-5.1)
[2024-07-18 19:45] LABS: LACTIC ACID 1.1 mmol/L (0.4-2.0)
[2024-07-18] MEDS: Acetaminophen 325 MG Tab PO ONE (20:13)
[2024-07-18 20:25] LABS: INR 1.22; PROTHROMBIN TIME 12.8 SECONDS (9.7-12.0)
[2024-07-18] MEDS: Sodium Chloride 0.9% 10 ML Syringe FLUSH ONE (22:46)
[2024-07-18] MEDS: Iopamidol 612 MG/ML 30 ML SDV IVPUSH ONE (22:46)
[2024-07-18] MEDS: Sodium Chloride 0.9% 1,000 ML IV SCH (23:27)
[2024-07-19] MEDS ORDERED: Naloxone 0.4 MG/ML SDV IVPUSH PRN (00:08)
[2024-07-19] MEDS: Morphine 4 MG/ML Syringe IVPUSH ONE (00:16)
== END 2024-07-19 01:35 | disposition home or self-care (01) ==
LOC: JD.ED 17:09
DX: K86.3 Pseudocyst of pancreas (principal); R79.89 Other specified abnormal findings of blood chemistry; K86.0 Alcohol-induced chronic pancreatitis; I50.9 Heart failure, unspecified; I25.2 Old myocardial infarction; Z79.82 Long term (current) use of aspirin; Z79.899 Other long term (current) drug therapy
CPT/HCPCS: 36415; 71045; 74177; 76705; 80053; 80307; 83605; 83690; 84484; 85025; 85610; 87635; 93005; 96374; 99284; A9270; J2270; J3490; J7030; Q9967; U0002

== ENCOUNTER 2024-07-20 16:34 | Emergency (ER) | payer MEDICAID ==
[2024-07-20 18:15] LABS: BASOPHILS PERCENT AUTO 0.5 % (0.0-1.0); EOSINOPHILS PERCENT AUTO 15.3 % (0.0-6.0); HEMATOCRIT 32.3 % (37.0-47.0); HEMOGLOBIN 11.4 gm/dl (12.0-16.0); IMMATURE GRAN ABSOLUTE AUTO 0.01 K/mm3 (0.00-0.05); IMMATURE GRAN PERCENT AUTO 0.2 % (0.0-0.4); LYMPHOCYTES ABSOLUTE AUTO 1.5 K/mm3 (1.0-4.8); LYMPHOCYTES PERCENT AUTO 24.7 % (24.0-44.0); MEAN CORPUSCULAR HEMOGLOBIN 29.4 pg (28.0-32.0); MEAN CORPUSCULAR HGB CONC 35.3 g/dl (32.0-36.0); MEAN CORPUSCULAR VOLUME 83.2 fl (83.0-99.0); MEAN PLATELET VOLUME 9.6 fl (9.4-12.3); MONOCYTES ABSOLUTE AUTO 0.5 K/mm3 (0.0-0.8); MONOCYTES PERCENT AUTO 7.9 % (0.0-8.0); NEUTROPHILS ABSOLUTE AUTO 3.2 K/mm3 (1.8-7.7); NEUTROPHILS PERCENT AUTO 51.4 % (41.0-71.0); PLATELET COUNT,PLT 258 K/mm3 (150-400); RED BLOOD CELL COUNT 3.88 M/mm3 (4.10-5.30)
[2024-07-20 18:36] LABS: A/G RATIO 0.8 (1-2); ALBUMIN 3.2 g/dl (3.4-5.0); ANION GAP 14.7 (5-15); BILIRUBIN TOTAL 0.5 mg/dL (0.2-1.0); BUN/CREATININE RATIO 8.6 (14-18); C-REACTIVE PROTEIN 1.87 mg/dL (<0.30); CALCIUM 9.2 mg/dL (8.5-10.1); CREATININE 0.7 mg/dL (0.55-1.02); EST CRCL DRUG DOSING (CG) 84.58 mL/min; POTASSIUM,K 4.7 mEq/L (3.5-5.1); PROTEIN TOTAL,TP 7.4 g/dl (6.4-8.2)
[2024-07-20 18:52] LABS: LACTIC ACID 1.2 mmol/L (0.4-2.0)
[2024-07-20] MEDS: oxyCODONE 5 MG Tab PO ONE (19:57)
[2024-07-22 17:46] LABS: CA 19-9 <2 U/mL (<=35)
== END 2024-07-20 20:05 | disposition home or self-care (01) ==
LOC: JD.ED 16:34
DX: K86.0 Alcohol-induced chronic pancreatitis (principal); I50.9 Heart failure, unspecified; I25.2 Old myocardial infarction; Z79.82 Long term (current) use of aspirin; Z79.899 Other long term (current) drug therapy
CPT/HCPCS: 36415; 80053; 83605; 83690; 85025; 86140; 86301; 99284; A9270

== ENCOUNTER 2024-07-25 16:05 | Emergency (ER) | payer MEDICAID ==
[2024-07-25 16:34] LABS: BASOPHILS ABSOLUTE AUTO 0.1 K/mm3 (0.0-0.2); BASOPHILS PERCENT AUTO 0.7 % (0.0-1.0); EOSINOPHILS ABSOLUTE AUTO 0.6 K/mm3 (0.0-0.4); EOSINOPHILS PERCENT AUTO 9.1 % (0.0-6.0); HEMATOCRIT 33.6 % (37.0-47.0); HEMOGLOBIN 11.8 gm/dl (12.0-16.0); IMMATURE GRAN ABSOLUTE AUTO 0.02 K/mm3 (0.00-0.05); IMMATURE GRAN PERCENT AUTO 0.3 % (0.0-0.4); LYMPHOCYTES ABSOLUTE AUTO 1.5 K/mm3 (1.0-4.8); LYMPHOCYTES PERCENT AUTO 22.1 % (24.0-44.0); MEAN CORPUSCULAR HEMOGLOBIN 28.9 pg (28.0-32.0); MEAN CORPUSCULAR HGB CONC 35.1 g/dl (32.0-36.0); MEAN CORPUSCULAR VOLUME 82.2 fl (83.0-99.0); MEAN PLATELET VOLUME 9.7 fl (9.4-12.3); MONOCYTES ABSOLUTE AUTO 0.5 K/mm3 (0.0-0.8); MONOCYTES PERCENT AUTO 7.7 % (0.0-8.0); NEUTROPHILS ABSOLUTE AUTO 4.1 K/mm3 (1.8-7.7); NEUTROPHILS PERCENT AUTO 60.1 % (41.0-71.0); PLATELET COUNT,PLT 207 K/mm3 (150-400); RED BLOOD CELL COUNT 4.09 M/mm3 (4.10-5.30); WHITE BLOOD CELL COUNT,WBC 6.74 K/mm3 (3.9-11.3)
[2024-07-25] MEDS: Ondansetron 4 MG/2 ML SDV IVPUSH ONE (16:54)
[2024-07-25] MEDS: Sodium Chloride 0.9% 10 ML Syringe FLUSH PRN (16:54)
[2024-07-25] MEDS: HYDROmorphone 0.5 MG/0.5 ML Syringe IVPUSH ONE (16:54)
[2024-07-25] MEDS: Sodium Chloride 0.9% 1,000 ML IV STA (16:54)
[2024-07-25 17:00] LABS: A/G RATIO 0.8 (1-2); ALBUMIN 3.1 g/dl (3.4-5.0); ANION GAP 14.9 (5-15); BILIRUBIN TOTAL 0.3 mg/dL (0.2-1.0); CALCIUM 9.4 mg/dL (8.5-10.1); CREATININE 0.6 mg/dL (0.55-1.02); EST CRCL DRUG DOSING (CG) 114.56 mL/min; POTASSIUM,K 3.9 mEq/L (3.5-5.1); PROTEIN TOTAL,TP 6.9 g/dl (6.4-8.2)
[2024-07-25] MEDS: oxyCODONE 5 MG Tab PO ONE (18:10)
== END 2024-07-25 18:20 | disposition home or self-care (01) ==
LOC: JD.ED 16:05
DX: J98.9 Respiratory disorder, unspecified (principal); K86.3 Pseudocyst of pancreas; K86.0 Alcohol-induced chronic pancreatitis; Z79.82 Long term (current) use of aspirin; Z79.899 Other long term (current) drug therapy
CPT/HCPCS: 36415; 71046; 80053; 83690; 84484; 85025; 93005; 96374; 96375; 99285; A9270; J1170; J2405; J3490; J7030

== ENCOUNTER 2024-08-12 15:35 | Emergency (ER) | payer MEDICAID ==
[2024-08-12 16:41] LABS: BASOPHILS PERCENT AUTO 0.5 % (0.0-1.0); EOSINOPHILS ABSOLUTE AUTO 0.3 K/mm3 (0.0-0.4); EOSINOPHILS PERCENT AUTO 5.2 % (0.0-6.0); HEMATOCRIT 31.1 % (37.0-47.0); HEMOGLOBIN 11.4 gm/dl (12.0-16.0); IMMATURE GRAN ABSOLUTE AUTO 0.03 K/mm3 (0.00-0.05); IMMATURE GRAN PERCENT AUTO 0.5 % (0.0-0.4); LYMPHOCYTES ABSOLUTE AUTO 0.9 K/mm3 (1.0-4.8); LYMPHOCYTES PERCENT AUTO 13.4 % (24.0-44.0); MEAN CORPUSCULAR HEMOGLOBIN 29.2 pg (28.0-32.0); MEAN CORPUSCULAR HGB CONC 36.7 g/dl (32.0-36.0); MEAN CORPUSCULAR VOLUME 79.7 fl (83.0-99.0); MEAN PLATELET VOLUME 11.1 fl (9.4-12.3); MONOCYTES ABSOLUTE AUTO 0.7 K/mm3 (0.0-0.8); MONOCYTES PERCENT AUTO 10.4 % (0.0-8.0); NEUTROPHILS ABSOLUTE AUTO 4.5 K/mm3 (1.8-7.7); PLATELET COUNT,PLT 190 K/mm3 (150-400); WHITE BLOOD CELL COUNT,WBC 6.35 K/mm3 (3.9-11.3)
[2024-08-12] MEDS: Sodium Chloride 0.9% 1,000 ML IV SCH (16:52)
[2024-08-12 17:03] LABS: INR 1.19; PROTHROMBIN TIME 12.5 SECONDS (9.7-12.0)
[2024-08-12 17:04] LABS: PTT,PARTIAL THROMBOPLSTIN TIME 28.8 SECONDS (21.7-31.4)
[2024-08-12 17:11] LABS: LACTIC ACID 0.7 mmol/L (0.4-2.0)
[2024-08-12] MEDS: Iopamidol 612 MG/ML 100 ML Bottle IVPUSH ONE (17:18)
[2024-08-12] MEDS: Sodium Chloride 0.9% 10 ML Syringe FLUSH PRN (17:18)
[2024-08-12 17:20] LABS: ALBUMIN 2.5 g/dl (3.4-5.0)
[2024-08-12 17:29] LABS: APPEARANCE,URINE CLEAR (Clear); BILIRUBIN,URINE 3+ (Negative); COLOR,URINE AMBER (Yellow); GLUCOSE,URINE NEGATIVE (Negative); KETONES,URINE NEGATIVE (Negative); LEUKOCYTE ESTERASE,URINE NEGATIVE (Negative); NITRITE,URINE NEGATIVE (Negative); OCCULT BLOOD,URINE NEGATIVE (Negative); PH,URINE 6.5 (5.0-8.0); PROTEIN,URINE TRACE (Negative); UROBILINOGEN,URINE 0.2 (0.2-1.0)
[2024-08-12 17:43] LABS: BARBITURATE SCREEN,URINE NEGATIVE (CUTOFF=200); BENZODIAZEPINES SCREEN,URINE PRESUMPTIVE POSITIVE (CUTOFF=150); BUPRENORPHINE SCREEN,URINE NEGATIVE (CUTOFF=10); METHADONE SCREEN, URINE NEGATIVE (CUTOFF=200); METHAMPHETAMINES SCREEN, URINE NEGATIVE (CUTOFF=500); OXYCODONE SCREEN,URINE PRESUMPTIVE POSITIVE (CUT0FF=100); THC SCREEN,URINE 20 NG/ML NEGATIVE (CUTOFF=50)
[2024-08-12 17:44] LABS: AMPHETAMINES SCREEN, URINE NEGATIVE (CUTOFF=500)
[2024-08-12] MEDS ORDERED: Naloxone 0.4 MG/ML SDV IVPUSH PRN ×3 (17:49→22:36)
[2024-08-12 17:50] LABS: RBC,URINE 0-5 /hpf (0-5); WBC,URINE 0-5 /hpf (0-5)
[2024-08-12 17:51] LABS: BACTERIA,URINE FEW /hpf (FEW); MUCUS,URINE MODERATE /hpf (FEW)
[2024-08-12 18:37] LABS: A/G RATIO 0.7 (1-2); ANION GAP 12.7 (5-15); BILIRUBIN TOTAL 4.6 mg/dL (0.2-1.0); CALCIUM 8.7 mg/dL (8.5-10.1); EST CRCL DRUG DOSING (CG) 116.52 mL/min; MAGNESIUM 1.5 mg/dL (1.8-2.4); POTASSIUM,K 3.7 mEq/L (3.5-5.1)
[2024-08-12 18:40] LABS: CREATININE 0.5 mg/dL (0.55-1.02)
[2024-08-12] MEDS: fentaNYL 100 MCG/2 ML SDV IVPUSH ONE ×2 (18:56→22:46)
[2024-08-12] MEDS: Magnesium Sulfate/Water Premix 2 GM/50 ML BAG IV SCH (20:19)
[2024-08-13] MEDS: Dextrose 5%-Lactated Ringers 1,000 ML IV SCH (00:54)
[2024-08-13] MEDS: HYDROmorphone 0.5 MG/0.5 ML Syringe IVPUSH ONE ×2 (01:30→06:36)
[2024-08-13] MEDS: fentaNYL 100 MCG/2 ML SDV IVPUSH ONE (04:49)
[2024-08-13 06:59] LABS: A/G RATIO 0.7 (1-2); ALBUMIN 2.2 g/dl (3.4-5.0); BILIRUBIN TOTAL 3.8 mg/dL (0.2-1.0); CALCIUM 8.6 mg/dL (8.5-10.1); CREATININE 0.6 mg/dL (0.55-1.02); EST CRCL DRUG DOSING (CG) 97.1 mL/min; PROTEIN TOTAL,TP 5.6 g/dl (6.4-8.2)
[2024-08-13] MEDS: Gadobenate Dimeglumine 529 MG/ML 15 ML SDV IVPUSH ONE (10:50)
[2024-08-13] MEDS: Sodium Chloride 0.9% 10 ML Syringe FLUSH SCH (10:51)
[2024-08-13] MEDS: Sodium Chloride 0.9% 10 ML SDV IV ONE (10:57)
== END 2024-08-13 13:43 | disposition left against medical advice (07) ==
LOC: JD.ED 15:35
DX: K86.3 Pseudocyst of pancreas (principal); I50.9 Heart failure, unspecified; F17.210 Nicotine dependence, cigarettes, uncomplicated; Z79.899 Other long term (current) drug therapy; Z79.82 Long term (current) use of aspirin
CPT/HCPCS: 36415; 71045; 74177; 74183; 76705; 80053; 80306; 80307; 81001; 83605; 83690; 83735; 83880; 84484; 85025; 85610; 85730; 93005; 96361; 96374; 96375; 96376; 99285; A9577; J1171; J3010; J3475; J3490; J7030; J7121; Q9967; 93010; 99284

== ENCOUNTER 2024-08-21 19:23 | Emergency (ER) | payer MEDICAID ==
[2024-08-21 20:12] LABS: BASOPHILS PERCENT AUTO 0.4 % (0.0-1.0); EOSINOPHILS ABSOLUTE AUTO 0.4 K/mm3 (0.0-0.4); EOSINOPHILS PERCENT AUTO 5.5 % (0.0-6.0); HEMATOCRIT 30.5 % (37.0-47.0); HEMOGLOBIN 11.1 gm/dl (12.0-16.0); IMMATURE GRAN ABSOLUTE AUTO 0.02 K/mm3 (0.00-0.05); IMMATURE GRAN PERCENT AUTO 0.3 % (0.0-0.4); LYMPHOCYTES ABSOLUTE AUTO 1.2 K/mm3 (1.0-4.8); LYMPHOCYTES PERCENT AUTO 17.2 % (24.0-44.0); MEAN CORPUSCULAR HEMOGLOBIN 29.1 pg (28.0-32.0); MEAN CORPUSCULAR HGB CONC 36.4 g/dl (32.0-36.0); MEAN CORPUSCULAR VOLUME 79.8 fl (83.0-99.0); MEAN PLATELET VOLUME 9.6 fl (9.4-12.3); MONOCYTES ABSOLUTE AUTO 0.8 K/mm3 (0.0-0.8); MONOCYTES PERCENT AUTO 10.7 % (0.0-8.0); NEUTROPHILS ABSOLUTE AUTO 4.8 K/mm3 (1.8-7.7); NEUTROPHILS PERCENT AUTO 65.9 % (41.0-71.0); PLATELET COUNT,PLT 236 K/mm3 (150-400); RED BLOOD CELL COUNT 3.82 M/mm3 (4.10-5.30); WHITE BLOOD CELL COUNT,WBC 7.22 K/mm3 (3.9-11.3)
[2024-08-21 20:32] LABS: INR 1.11; PROTHROMBIN TIME 11.7 SECONDS (9.7-12.0)
[2024-08-21 20:47] LABS: A/G RATIO 0.7 (1-2); ALBUMIN 2.7 g/dl (3.4-5.0); ANION GAP 10.8 (5-15); BILIRUBIN TOTAL 1.4 mg/dL (0.2-1.0); BUN/CREATININE RATIO 18.6 (14-18); CALCIUM 9.2 mg/dL (8.5-10.1); CREATININE 0.7 mg/dL (0.55-1.02); EST CRCL DRUG DOSING (CG) 83.23 mL/min; MAGNESIUM 1.9 mg/dL (1.8-2.4); POTASSIUM,K 4.8 mEq/L (3.5-5.1); PROTEIN TOTAL,TP 6.5 g/dl (6.4-8.2)
[2024-08-21 21:21] LABS: APPEARANCE,URINE CLEAR (Clear); BILIRUBIN,URINE 1+ (Negative); COLOR,URINE YELLOW (Yellow); GLUCOSE,URINE NEGATIVE (Negative); KETONES,URINE NEGATIVE (Negative); LEUKOCYTE ESTERASE,URINE TRACE (Negative); NITRITE,URINE NEGATIVE (Negative); OCCULT BLOOD,URINE NEGATIVE (Negative); PH,URINE 6.5 (5.0-8.0); PROTEIN,URINE 1+ (Negative); UROBILINOGEN,URINE 0.2 (0.2-1.0)
[2024-08-21 21:33] LABS: BACTERIA,URINE MODERATE /hpf (FEW); MUCUS,URINE FEW /hpf (FEW); RBC,URINE 0-5 /hpf (0-5)
[2024-08-22] MEDS ORDERED: Naloxone 0.4 MG/ML SDV IVPUSH PRN ×2 (01:10→04:28)
[2024-08-22] MEDS: HYDROmorphone 0.5 MG/0.5 ML Syringe IVPUSH ONE ×2 (01:34→04:34)
[2024-08-22] MEDS: Iopamidol 612 MG/ML 100 ML Bottle IVPUSH ONE (03:03)
[2024-08-22] MEDS: cefTRIAXone 1 GM in Sodium Chloride 0.9% 100 ML IV ONE (04:37)
[2024-08-22] MEDS ORDERED: HYDROmorphone 0.5 MG/0.5 ML Syringe IVPUSH ONE (09:11)
== END 2024-08-22 09:57 | disposition home or self-care (01) ==
LOC: JD.ED 19:23
DX: K86.0 Alcohol-induced chronic pancreatitis (principal); K86.9 Disease of pancreas, unspecified; Z79.82 Long term (current) use of aspirin; Z79.899 Other long term (current) drug therapy
CPT/HCPCS: 36415; 71045; 74177; 80053; 81001; 83605; 83690; 83735; 83880; 84484; 85025; 85610; 85730; 87086; 93005; 96365; 96375; 96376; 99285; J0696; J1171; J3490; Q9967; 93010

== ENCOUNTER 2024-09-28 09:11 | Emergency (ER) | payer MEDICAID ==
[2024-09-28] MEDS ORDERED: Sodium Chloride 0.9% 10 ML Syringe FLUSH PRN (09:38)
[2024-09-28 09:54] LABS: BASOPHILS PERCENT AUTO 0.2 % (0.0-1.0); EOSINOPHILS PERCENT AUTO 0.1 % (0.0-6.0); HEMATOCRIT 28.9 % (37.0-47.0); HEMOGLOBIN 11.1 gm/dl (12.0-16.0); IMMATURE GRAN ABSOLUTE AUTO 0.11 K/mm3 (0.00-0.05); IMMATURE GRAN PERCENT AUTO 0.9 % (0.0-0.4); LYMPHOCYTES ABSOLUTE AUTO 0.6 K/mm3 (1.0-4.8); MEAN CORPUSCULAR HEMOGLOBIN 32.1 pg (28.0-32.0); MEAN CORPUSCULAR HGB CONC 38.4 g/dl (32.0-36.0); MEAN CORPUSCULAR VOLUME 83.5 fl (83.0-99.0); MEAN PLATELET VOLUME 10.6 fl (9.4-12.3); MONOCYTES ABSOLUTE AUTO 1.3 K/mm3 (0.0-0.8); MONOCYTES PERCENT AUTO 9.9 % (0.0-8.0); NEUTROPHILS ABSOLUTE AUTO 10.7 K/mm3 (1.8-7.7); NEUTROPHILS PERCENT AUTO 83.9 % (41.0-71.0); PLATELET COUNT,PLT 278 K/mm3 (150-400); RED BLOOD CELL COUNT 3.46 M/mm3 (4.10-5.30); WHITE BLOOD CELL COUNT,WBC 12.68 K/mm3 (3.9-11.3)
[2024-09-28] MEDS: HYDROmorphone 1 MG/ML Syringe IVPUSH ONE ×2 (09:56→11:18)
[2024-09-28 10:56] LABS: A/G RATIO 0.5 (1-2); ALBUMIN 2.2 g/dl (3.4-5.0); ANION GAP 16.6 (5-15); BILIRUBIN TOTAL 15.2 mg/dL (0.2-1.0); C-REACTIVE PROTEIN 18.43 mg/dL (<0.30); CALCIUM 9.4 mg/dL (8.5-10.1); EST CRCL DRUG DOSING (CG) 114.7 mL/min; MAGNESIUM 1.9 mg/dL (1.8-2.4)
[2024-09-28 11:11] LABS: POTASSIUM,K 4.6 mEq/L (3.5-5.1); PROTEIN TOTAL,TP 7.1 g/dl (6.4-8.2)
[2024-09-28 11:13] LABS: CREATININE 0.5 mg/dL (0.55-1.02)
[2024-09-28] MEDS: Sodium Chloride 0.9% 10 ML Syringe FLUSH PRN (12:14)
[2024-09-28] MEDS: Iopamidol 612 MG/ML 100 ML Bottle IVPUSH ONE (12:14)
[2024-09-28] MEDS: HYDROmorphone 0.5 MG/0.5 ML Syringe IVPUSH ONE (16:22)
[2024-09-28] MEDS: Lactated Ringers 1,000 ML IV SCH (16:23)
== END 2024-09-28 19:04 ==
LOC: JD.ED 09:11
DX: K86.0 Alcohol-induced chronic pancreatitis (principal); R07.9 Chest pain, unspecified; K86.3 Pseudocyst of pancreas; K83.1 Obstruction of bile duct; I50.9 Heart failure, unspecified; Z79.899 Other long term (current) drug therapy; Z79.82 Long term (current) use of aspirin
CPT/HCPCS: 36415; 71045; 74177; 80053; 83690; 83735; 84484; 85025; 86140; 93005; 96361; 96374; 96376; 99285; J1171; J3490; J7120; Q9967; 93010

== ENCOUNTER 2025-01-06 03:45 | Emergency (ER) | payer MEDICAID ==
[2025-01-06] MEDS ORDERED: Sodium Chloride 0.9% 10 ML Syringe FLUSH PRN (04:19)
[2025-01-06 04:38] LABS: BASOPHILS PERCENT AUTO 0.7 % (0.0-1.0); EOSINOPHILS ABSOLUTE AUTO 0.2 K/mm3 (0.0-0.4); EOSINOPHILS PERCENT AUTO 3.5 % (0.0-6.0); HEMATOCRIT 36.6 % (37.0-47.0); HEMOGLOBIN 13.3 gm/dl (12.0-16.0); IMMATURE GRAN ABSOLUTE AUTO 0.02 K/mm3 (0.00-0.05); IMMATURE GRAN PERCENT AUTO 0.3 % (0.0-0.4); LYMPHOCYTES ABSOLUTE AUTO 2.4 K/mm3 (1.0-4.8); LYMPHOCYTES PERCENT AUTO 41.3 % (24.0-44.0); MEAN CORPUSCULAR HGB CONC 36.3 g/dl (32.0-36.0); MEAN CORPUSCULAR VOLUME 79.9 fl (83.0-99.0); MEAN PLATELET VOLUME 9.9 fl (9.4-12.3); MONOCYTES ABSOLUTE AUTO 0.5 K/mm3 (0.0-0.8); MONOCYTES PERCENT AUTO 8.8 % (0.0-8.0); NEUTROPHILS ABSOLUTE AUTO 2.6 K/mm3 (1.8-7.7); NEUTROPHILS PERCENT AUTO 45.4 % (41.0-71.0); PLATELET COUNT,PLT 217 K/mm3 (150-400); RED BLOOD CELL COUNT 4.58 M/mm3 (4.10-5.30); WHITE BLOOD CELL COUNT,WBC 5.78 K/mm3 (3.9-11.3)
[2025-01-06 05:01] LABS: A/G RATIO 0.8 (1-2); ALANINE AMINOTRANSFERASE,ALT 23 U/L (14-59); ALBUMIN 2.9 g/dl (3.4-5.0); ALKALINE PHOSPHATASE 158 U/L (46-116); ANION GAP 10.3 (5-15); ASPARTATE AMNIOTRANSFERASE,AST 41 U/L (15-37); BILIRUBIN TOTAL 0.6 mg/dL (0.2-1.0); BLOOD UREA NITROGEN,BUN 10 mg/dL (7-18); BUN/CREATININE RATIO 12.5 (14-18); CALCIUM 9.2 mg/dL (8.5-10.1); CARBON DIOXIDE,CO2 29 mEq/L (21-32); CHLORIDE,CL 105 mEq/L (98-107); CREATININE 0.8 mg/dL (0.55-1.02); EST CRCL DRUG DOSING (CG) 64.86 mL/min; ESTIMATED GFR 87 mL/min (>60); GLUCOSE RANDOM 122 mg/dL (70-99); INR 1.15; MAGNESIUM 1.6 mg/dL (1.8-2.4); POTASSIUM,K 4.3 mEq/L (3.5-5.1); PROTEIN TOTAL,TP 6.7 g/dl (6.4-8.2); PROTHROMBIN TIME 12.1 SECONDS (9.7-12.0); SODIUM,NA 140 mEq/L (136-145); TROPONIN I HIGH SENSITIVITY 35 pg/mL (<=51)
[2025-01-06 05:28] LABS: C-REACTIVE PROTEIN < 0.05 mg/dL (<0.30)
== END 2025-01-06 06:14 | disposition home or self-care (01) ==
LOC: JD.ED 03:45
DX: R56.9 Unspecified convulsions (principal); R41.0 Disorientation, unspecified; I50.9 Heart failure, unspecified; I25.2 Old myocardial infarction; F17.210 Nicotine dependence, cigarettes, uncomplicated; Z79.82 Long term (current) use of aspirin; Z79.899 Other long term (current) drug therapy
CPT/HCPCS: 36415; 70450; 70450-26; 80053; 80307; 83735; 84484; 85025; 85610; 86140; 93005; 99285

== ENCOUNTER 2025-01-06 14:08 | Inpatient (IN) | payer MEDICAID ==
[2025-01-06] MEDS: diphenhydrAMINE 50 MG/ML SDV IVPUSH ONE (14:53)
[2025-01-06] MEDS: Sodium Chloride 0.9% 1,000 ML IV ONE (14:53)
[2025-01-06] MEDS: Metoclopramide 10 MG/2 ML SDV IVPUSH ONE (14:53)
[2025-01-06 15:21] LABS: BASOPHILS PERCENT AUTO 0.5 % (0.0-1.0); EOSINOPHILS ABSOLUTE AUTO 0.1 K/mm3 (0.0-0.4); EOSINOPHILS PERCENT AUTO 1.1 % (0.0-6.0); IMMATURE GRAN ABSOLUTE AUTO 0.02 K/mm3 (0.00-0.05); IMMATURE GRAN PERCENT AUTO 0.3 % (0.0-0.4); LYMPHOCYTES ABSOLUTE AUTO 1.6 K/mm3 (1.0-4.8); MEAN PLATELET VOLUME 10.1 fl (9.4-12.3); MONOCYTES ABSOLUTE AUTO 0.5 K/mm3 (0.0-0.8); MONOCYTES PERCENT AUTO 7.1 % (0.0-8.0); NEUTROPHILS ABSOLUTE AUTO 4.3 K/mm3 (1.8-7.7); PLATELET COUNT,PLT 234 K/mm3 (150-400); WHITE BLOOD CELL COUNT,WBC 6.51 K/mm3 (3.9-11.3)
[2025-01-06 15:48] LABS: APPEARANCE,URINE CLEAR (Clear); BILIRUBIN,URINE NEGATIVE (Negative); COLOR,URINE YELLOW (Yellow); GLUCOSE,URINE NEGATIVE (Negative); KETONES,URINE NEGATIVE (Negative); LEUKOCYTE ESTERASE,URINE NEGATIVE (Negative); NITRITE,URINE NEGATIVE (Negative); OCCULT BLOOD,URINE NEGATIVE (Negative); PROTEIN,URINE 2+ (Negative); UROBILINOGEN,URINE 0.2 (0.2-1.0)
[2025-01-06 15:52] LABS: A/G RATIO 0.8 (1-2); ALANINE AMINOTRANSFERASE,ALT 24 U/L (14-59); ALBUMIN 3.1 g/dl (3.4-5.0); ALKALINE PHOSPHATASE 172 U/L (46-116); ANION GAP 11.9 (5-15); ASPARTATE AMNIOTRANSFERASE,AST 36 U/L (15-37); BILIRUBIN TOTAL 1.5 mg/dL (0.2-1.0); BLOOD UREA NITROGEN,BUN 7 mg/dL (7-18); BUN/CREATININE RATIO 8.8 (14-18); CALCIUM 9.5 mg/dL (8.5-10.1); CARBON DIOXIDE,CO2 28 mEq/L (21-32); CHLORIDE,CL 101 mEq/L (98-107); CREATININE 0.8 mg/dL (0.55-1.02); ESTIMATED GFR 87 mL/min (>60); GLUCOSE RANDOM 99 mg/dL (70-99); LIPASE 59 U/L (16-77); POTASSIUM,K 3.9 mEq/L (3.5-5.1); PROTEIN TOTAL,TP 7.2 g/dl (6.4-8.2); SODIUM,NA 137 mEq/L (136-145)
[2025-01-06 15:54] LABS: RBC,URINE 0-5 /hpf (0-5); WBC,URINE 0-5 /hpf (0-5)
[2025-01-06 15:55] LABS: AMORPHOUS SEDIMENT,URINE FEW /hpf (NOT SEEN); BACTERIA,URINE FEW /hpf (FEW); BARBITURATE SCREEN,URINE NEGATIVE (CUTOFF=200); BENZODIAZEPINES SCREEN,URINE NEGATIVE (CUTOFF=150); BUPRENORPHINE SCREEN,URINE NEGATIVE (CUTOFF=10); METHADONE SCREEN, URINE NEGATIVE (CUTOFF=200); METHAMPHETAMINES SCREEN, URINE NEGATIVE (CUTOFF=500); MUCUS,URINE FEW /hpf (FEW); OXYCODONE SCREEN,URINE PRESUMPTIVE POSITIVE (CUT0FF=100); THC SCREEN,URINE 20 NG/ML NEGATIVE (CUTOFF=50)
[2025-01-06 15:56] LABS: AMPHETAMINES SCREEN, URINE NEGATIVE (CUTOFF=500)
[2025-01-06 15:59] LABS: RED BLOOD CELL COUNT 4.6 M/mm3 (4.10-5.30)
[2025-01-06 16:00] LABS: HEMATOCRIT 36.5 % (37.0-47.0)
[2025-01-06 16:02] LABS: MEAN CORPUSCULAR HEMOGLOBIN 28.3 pg (28.0-32.0); MEAN CORPUSCULAR HGB CONC 35.6 g/dl (32.0-36.0); MEAN CORPUSCULAR VOLUME 79.3 fl (83.0-99.0)
[2025-01-06] MEDS: SUMAtriptan 6 MG/0.5 ML SDV SUBCUT ONE (16:37)
[2025-01-06] MEDS: SUMAtriptan 50 MG Tab PO ONE (16:45)
[2025-01-06] MEDS: LORazepam 2 MG/ML SDV IVPUSH ONE (17:14)
[2025-01-06] MEDS: LORazepam 2 MG/ML SDV ONE (17:18)
[2025-01-06] MEDS: levETIRAcetam 500 MG/5 ML SDV IVPUSH ONE (17:24)
[2025-01-06] MEDS ORDERED: Melatonin 3 MG Tab PO PRN (18:12)
[2025-01-06] MEDS ORDERED: Sennosides/Docusate Sodium 50-8.6 MG Tab PO PRN (18:12)
[2025-01-06] MEDS ORDERED: Acetaminophen 325 MG Tab PO PRN (18:12)
[2025-01-06] MEDS ORDERED: Ondansetron 4 MG/2 ML SDV IV PRN (18:12)
[2025-01-06] MEDS ORDERED: oxyCODONE 5 MG Tab PO PRN (18:12)
[2025-01-06] MEDS ORDERED: LORazepam 2 MG/ML SDV IVPUSH PRN (18:16)
[2025-01-06] MEDS ORDERED: Labetalol 100 MG/20 ML MDV IVPUSH PRN (18:18)
[2025-01-06] MEDS ORDERED: hydrALAZINE 20 MG/ML SDV IVPUSH PRN (18:18)
[2025-01-06] MEDS ORDERED: 50% Dextrose in Water 50 ML Syringe IVPUSH PRN (18:19)
[2025-01-06] MEDS: levETIRAcetam Soln 500 MG/5 ML Cup PO SCH (19:59)
[2025-01-06] MEDS: Magnesium Sulfat/D5W 1GM/100ML 1 GM in Premix Bag 1 BAG IV ONE (19:59)
[2025-01-06] MEDS: Insulin Lispro 100 Unit/ML 3 ML KwikPen SUBCUT SCH (21:55)
[2025-01-07] MEDS: Gadobenate Dimeglumine 529 MG/ML 15 ML SDV IVPUSH ONE (07:15)
[2025-01-07] MEDS: Sodium Chloride 0.9% 10 ML Syringe FLUSH SCH (07:15)
[2025-01-07] MEDS ORDERED: Enoxaparin 40 MG/0.4 ML Syringe SUBCUT SCH (09:00)
== END 2025-01-07 10:42 | disposition left against medical advice (07) | DRG 894 ==
LOC: JD.ED 14:08 → JD.MS 18:12
PROVIDERS: ADMIT Student in an Organized Health Care Education/Training Program; ATTEND Student in an Organized Health Care Education/Training Program
DX: F10.139 Alcohol abuse with withdrawal, unspecified (principal); R56.9 Unspecified convulsions; F10.10 Alcohol abuse, uncomplicated; H54.7 Unspecified visual loss; I50.9 Heart failure, unspecified; F41.9 Anxiety disorder, unspecified; F32.A Depression, unspecified; F17.210 Nicotine dependence, cigarettes, uncomplicated; F15.90 Other stimulant use, unspecified, uncomplicated; I11.0 Hypertensive heart disease with heart failure; Z53.29 Procedure and treatment not carried out because of patient's decision for other reasons; Y90.0 Blood alcohol level of less than 20 mg/100 ml; Z79.82 Long term (current) use of aspirin; Z79.899 Other long term (current) drug therapy; I25.2 Old myocardial infarction; Z87.81 Personal history of (healed) traumatic fracture
CPT/HCPCS: 36415; 70450; 80053; 80306; 80307; 81001; 83690; 85025; 96361; 96374; 96375; 99285; A9270; C1758; J1200; J1953; J2060; J2765; J7030; 70553; 70553-26; 93005; 94761; 97116-GP; 97162-GP; A9577; J3475

== ENCOUNTER 2025-04-16 22:13 | Emergency (ER) | payer BC, MEDICAID ==
[2025-04-16 22:59] LABS: BASOPHILS PERCENT AUTO 0.6 % (0.0-1.0); EOSINOPHILS ABSOLUTE AUTO 0.2 K/mm3 (0.0-0.4); EOSINOPHILS PERCENT AUTO 2.7 % (0.0-6.0); HEMATOCRIT 40.6 % (37.0-47.0); HEMOGLOBIN 14.9 gm/dl (12.0-16.0); IMMATURE GRAN ABSOLUTE AUTO 0.02 K/mm3 (0.00-0.05); IMMATURE GRAN PERCENT AUTO 0.3 % (0.0-0.4); LYMPHOCYTES ABSOLUTE AUTO 3.1 K/mm3 (1.0-4.8); LYMPHOCYTES PERCENT AUTO 46.2 % (24.0-44.0); MEAN CORPUSCULAR HEMOGLOBIN 31.8 pg (28.0-32.0); MEAN CORPUSCULAR HGB CONC 36.7 g/dl (32.0-36.0); MEAN CORPUSCULAR VOLUME 86.6 fl (83.0-99.0); MEAN PLATELET VOLUME 9.9 fl (9.4-12.3); MONOCYTES ABSOLUTE AUTO 0.4 K/mm3 (0.0-0.8); MONOCYTES PERCENT AUTO 5.5 % (0.0-8.0); NEUTROPHILS PERCENT AUTO 44.7 % (41.0-71.0); PLATELET COUNT,PLT 209 K/mm3 (150-400); RED BLOOD CELL COUNT 4.69 M/mm3 (4.10-5.30); WHITE BLOOD CELL COUNT,WBC 6.75 K/mm3 (3.9-11.3)
[2025-04-16 23:13] LABS: APPEARANCE,URINE CLEAR (Clear); BILIRUBIN,URINE NEGATIVE (Negative); COLOR,URINE YELLOW (Yellow); GLUCOSE,URINE NEGATIVE (Negative); KETONES,URINE NEGATIVE (Negative); LEUKOCYTE ESTERASE,URINE TRACE (Negative); NITRITE,URINE NEGATIVE (Negative); OCCULT BLOOD,URINE NEGATIVE (Negative); PROTEIN,URINE NEGATIVE (Negative); UROBILINOGEN,URINE 0.2 (0.2-1.0)
[2025-04-16] MEDS: Sodium Chloride 0.9% 500 ML IV ONE (23:18)
[2025-04-16] MEDS: Sodium Chloride 0.9% 10 ML Syringe FLUSH PRN (23:18)
[2025-04-16 23:28] LABS: BACTERIA,URINE MODERATE /hpf (FEW); MUCUS,URINE NOT SEEN /hpf (FEW); RBC,URINE 0-5 /hpf (0-5); YEAST,URINE FEW (NOT SEEN)
[2025-04-17 00:12] LABS: A/G RATIO 0.9 (1-2); ALBUMIN 3.6 g/dl (3.4-5.0); ANION GAP 13.2 (5-15); BILIRUBIN TOTAL 0.3 mg/dL (0.2-1.0); BUN/CREATININE RATIO 14.3 (14-18); CALCIUM 9.3 mg/dL (8.5-10.1); CREATININE 0.7 mg/dL (0.55-1.02); EST CRCL DRUG DOSING (CG) 74.78 mL/min; ETHANOL BLOOD MEDICAL 0.21 gm% (0.00); MAGNESIUM 1.4 mg/dL (1.8-2.4); POTASSIUM,K 3.2 mEq/L (3.5-5.1); PROTEIN TOTAL,TP 7.7 g/dl (6.4-8.2)
[2025-04-17] MEDS: Magnesium Oxide 400 MG Tab PO ONE (01:37)
[2025-04-17] MEDS: Potassium Chloride 20 MEQ Tab.ER PO ONE (01:37)
[2025-04-17] MEDS: Fluconazole 150 MG Tab PO ONE (01:37)
[2025-04-17] MEDS: Cephalexin 500 MG Cap PO ONE (01:40)
== END 2025-04-17 01:44 | disposition home or self-care (01) ==
LOC: JD.ED 22:13
DX: F10.90 Alcohol use, unspecified, uncomplicated (principal); E83.42 Hypomagnesemia; E87.6 Hypokalemia; I50.9 Heart failure, unspecified; R82.90 Unspecified abnormal findings in urine; W18.39XA Other fall on same level, initial encounter; Y90.9 Presence of alcohol in blood, level not specified
CPT/HCPCS: 36415; 70450; 71045; 72125; 80053; 80307; 81001; 83735; 84484; 85025; 87086; 93005; 96360; 96361; 99285; A9270; J7030; 93010; 99283